=== PATIENT | male | born 1980 | race American Indian/Alaskan Native ===

== ENCOUNTER 2017-04-26 22:52 | Emergency (ER) | payer SELFPAY ==
[2017-04-27 01:16] LABS: Basophils % (Auto) 0.5 % (0.0-1.8); Hematocrit 28.8 % (35.5-45.6); Hemoglobin 8.7 gm/dl (11.8-15.2); Mean Corpuscular HGB Conc 30 % (32-34); Mean Corpuscular Hemoglobin 19 pg (28-32); Mean Corpuscular Volume 62 fl (84-94); Platelet Count 384 K/mm3 (140-440); Red Blood Count 4.62 M/mm3 (3.65-5.03); Red Cell Distribution Width 21.5 % (13.2-15.2); White Blood Count 10.2 K/mm3 (4.5-11.0)
[2017-04-27 01:17] LABS: Alanine Aminotransferase 46 units/L (7-56); Albumin 3.9 g/dL (3.9-5); Alkaline Phosphatase 346 units/L (35-129); Anion Gap 19 mmol/L; BUN/Creatinine Ratio 8.88; Blood Urea Nitrogen 8 mg/dL (9-20); Calcium 8.4 mg/dL (8.4-10.2); Carbon Dioxide 21 mmol/L (22-30); Chloride 98.9 mmol/L (98-107); Glucose 116 mg/dL (75-100); Lipase 18 units/L (13-60); Sodium 136 mmol/L (137-145)
[2017-04-27 01:21] LABS: Bilirubin,Urine NEG (Negative); Blood,Urine NEG (Negative); Ketones,Urine 20 mg/dL (Negative); Leukocyte Esterase,Urine NEG (Negative); Mucus,Urine 3+ /HPF; Nitrite,Urine NEG (Negative); Urobilinogen,Urine < 2.0 mg/dL (<2.0)
--- NOTE | 2017-04-27 07:59 | Emergency Department Report ---
ED Abdominal Pain HPI - General Chief Complaint: Abdominal Pain Stated Complaint: BACK/HIP PAIN Time Seen by Provider: 04/27/17 07:54 Source: patient Mode of arrival: Ambulatory Limitations: No Limitations - History of Present Illness Initial Comments: The patient states that he came to the emergency department for evaluation of exertional dyspnea. He states he has a history of ulcerative colitis. He has no history of VTE. He has not had any recent travel. He has not been coughing. He denies any sort of chest or abdominal pain. He states his last transfusion was in January and that he does have intermittent rectal bleeding. He 's had no nausea vomiting or hematemesis. He denies any recent significant diarrhea. He is not complaining of exacerbation of his ulcerative colitis. He also denies being here for back or hip pain as the short seems indicated. Denies abdominal pain. -: hour(s) Radiation: none Migration to: no migration Quality: other (not applicable not applicable) Consistency: now resolved Improves With: nothing Worsens With: nothing Associated Symptoms: denies other symptoms - Related Data Previous Rx's Medication Instructions Recorded Last Taken Type Ferrous Gluconate [Fergon 325 MG 325 mg PO TID #20 tablet 04/27/17 Unknown Rx tab] Potassium Chloride [K-Dur] 10 meq PO QDAY #14 tablet 04/27/17 Unknown Rx Allergies Allergy/AdvReac Type Severity Reaction Status Date / Time No Known Allergies Allergy Verified 04/27/17 00:02 ED Review of Systems ROS: Stated complaint: BACK/HIP PAIN Other details as noted in HPI Constitutional: denies: chills, fever Eyes: denies: eye pain, eye discharge, vision change ENT: denies: ear pain, throat pain Respiratory: SOB with exertion (only on exertion not at rest). denies: cough, shortness of breath, wheezing Cardiovascular: denies: chest pain, palpitations Endocrine: no symptoms reported Gastrointestinal: as per HPI, abdominal pain. denies: nausea, vomiting, diarrhea, constipation, hematemesis, melena, hematochezia Genitourinary: denies: urgency, dysuria Musculoskeletal: denies: back pain, joint swelling, arthralgia Skin: denies: rash, lesions Neurological: denies: headache, weakness, paresthesias Psychiatric: denies: anxiety, depression Hematological/Lymphatic: denies: easy bleeding, easy bruising ED Past Medical Hx - Past Medical History Previous Medical History?: Yes Additional medical history: Colitis - Surgical History Past Surgical History?: No - Social History Smoking Status: Never Smoker Substance Use Type: None - Medications Home Medications: Home Medications Medication Instructions Recorded Confirmed Last Taken Type Ferrous Gluconate [Fergon 325 MG 325 mg PO TID #20 tablet 04/27/17 Unknown Rx tab] Potassium Chloride [K-Dur] 10 meq PO QDAY #14 tablet 04/27/17 Unknown Rx ED Physical Exam - General Limitations: No Limitations General appearance: alert, in no apparent distress - Head Head exam: Present: atraumatic, normocephalic - Eye Eye exam: Present: normal appearance, PERRL, EOMI. Absent: scleral icterus - ENT ENT exam: Present: mucous membranes moist - Neck Neck exam: Present: normal inspection - Respiratory Respiratory exam: Present: normal lung sounds bilaterally. Absent: respiratory distress - Cardiovascular Cardiovascular Exam: Present: regular rate, normal rhythm. Absent: systolic murmur, diastolic murmur, rubs, gallop - GI/Abdominal GI/Abdominal exam: Present: soft, tenderness (very minimal discomfort in the right upper quadrant. Negative Amato's.), normal bowel sounds. Absent: distended, guarding, rebound, rigid, organomegaly, mass, bruit, pulsatile mass, hernia - Rectal Rectal exam: Present: deferred - Extremities Exam Extremities exam: Present: normal inspection - Back Exam Back exam: Present: normal inspection. Absent: CVA tenderness (R), CVA tenderness (L) - Neurological Exam Neurological exam: Present: alert, oriented X3, CN II-XII intact. Absent: motor sensory deficit - Psychiatric Psychiatric exam: Present: normal affect, normal mood - Skin Skin exam: Present: warm, dry, intact, normal color. Absent: rash ED Course Vital Signs 04/26/17 04/27/17 04/27/17 22:55 02:59 08:00 Temperature 98.5 F 97.6 F Pulse Rate 95 H 91 H 53 L Respiratory 20 16 18 Rate Blood Pressure 116/83 Blood Pressure 110/74 114/72 [Right] O2 Sat by Pulse 99 100 100 Oximetry - Reevaluation(s) Reevaluation #1: Patient resting comfortably. He is no distress. His pulse oximetry is 100%. Is not complaining of dyspnea. We went over his discharge instructions. He does have a hypochromic microcytic anemia. Therefore he will be placed on supplemental iron and referred for follow-up on his anemia. 04/27/17 10:54 ED Medical Decision Making - Lab Data Result diagrams: 04/27/17 00:29 04/27/17 00:29 Laboratory Results - last 24 hr 04/27/17 04/27/17 04/27/17 00:29 00:29 00:30 WBC 10.2 RBC 4.62 Hgb 8.7 L Hct 28.8 L MCV 62 L MCH 19 L MCHC 30 L RDW 21.5 H Plt Count 384 Lymph % (Auto) 27.6 [place] % (Auto) 12.7 H Eos % (Auto) 10.0 H Baso % (Auto) 0.5 Lymph # 2.8 [place] # 1.3 H Eos # 1.0 H Baso # 0.0 Seg Neutrophils % 49.2 Seg Neutrophils # 5.0 Sodium 136 L Potassium 3.0 L Chloride 98.9 Carbon Dioxide 21 L Anion Gap 19 BUN 8 L Creatinine 0.9 Estimated GFR > 60 BUN/Creatinine Ratio 8.88 Glucose 116 H Calcium 8.4 Total Bilirubin 0.60 AST 34 ALT 46 Alkaline Phosphatase 346 H Total Protein 8.0 Albumin 3.9 Albumin/Globulin Ratio 1.0 Lipase 18 Urine Color Yellow Urine Turbidity Clear Urine pH 5.0 Ur Specific [place] 1.030 Urine Protein 30 mg/dl Urine Glucose (UA) Neg Urine Ketones 20 Urine Blood Neg Urine Nitrite Neg Urine Bilirubin Neg Urine Urobilinogen < 2.0 Ur Leukocyte Esterase Neg Urine WBC (Auto) 1.0 Urine RBC (Auto) 3.0 Urine Mucus 3+ Laboratory Results - last 24 hr 04/27/17 04/27/17 04/27/17 00:29 00:29 00:30 WBC 10.2 RBC 4.62 Hgb 8.7 L Hct 28.8 L MCV 62 L MCH 19 L MCHC 30 L RDW 21.5 H Plt Count 384 Lymph % (Auto) 27.6 [place] % (Auto) 12.7 H Eos % (Auto) 10.0 H Baso % (Auto) 0.5 Lymph # 2.8 [place] # 1.3 H Eos # 1.0 H Baso # 0.0 Seg Neutrophils % 49.2 Seg Neutrophils # 5.0 PT INR APTT D-Dimer Sodium 136 L Potassium 3.0 L Chloride 98.9 Carbon Dioxide 21 L Anion Gap 19 BUN 8 L Creatinine 0.9 Estimated GFR > 60 BUN/Creatinine Ratio 8.88 Glucose 116 H Calcium 8.4 Magnesium Total Bilirubin 0.60 AST 34 ALT 46 Alkaline Phosphatase 346 H Total Creatine Kinase CK-MB (CK-2) CK-MB (CK-2) Rel Index Troponin T NT-Pro-B Natriuret Pep Total Protein 8.0 Albumin 3.9 Albumin/Globulin Ratio 1.0 Lipase 18 Urine Color Yellow Urine Turbidity Clear Urine pH 5.0 Ur Specific [place] 1.030 Urine Protein 30 mg/dl Urine Glucose (UA) Neg Urine Ketones 20 Urine Blood Neg Urine Nitrite Neg Urine Bilirubin Neg Urine Urobilinogen < 2.0 Ur Leukocyte Esterase Neg Urine WBC (Auto) 1.0 Urine RBC (Auto) 3.0 Urine Mucus 3+ Blood Type Antibody Screen BRAEDEN Antibody Screen 04/27/17 04/27/17 04/27/17 08:29 08:29 08:29 WBC RBC Hgb Hct MCV MCH MCHC RDW Plt Count Lymph % (Auto) [place] % (Auto) Eos % (Auto) Baso % (Auto) Lymph # [place] # Eos # Baso # Seg Neutrophils % Seg Neutrophils # PT 13.1 INR 0.95 APTT 33.1 D-Dimer 266.23 H Sodium Potassium Chloride Carbon Dioxide Anion Gap BUN Creatinine Estimated GFR BUN/Creatinine Ratio Glucose Calcium Magnesium 1.90 Total Bilirubin AST ALT Alkaline Phosphatase Total Creatine Kinase CK-MB (CK-2) CK-MB (CK-2) Rel Index Troponin T NT-Pro-B Natriuret Pep Total Protein Albumin Albumin/Globulin Ratio Lipase Urine Color Urine Turbidity Urine pH Ur Specific [place] Urine Protein Urine Glucose (UA) Urine Ketones Urine Blood Urine Nitrite Urine Bilirubin Urine Urobilinogen Ur Leukocyte Esterase Urine WBC (Auto) Urine RBC (Auto) Urine Mucus Blood Type O POSITIVE Antibody Screen TNR BRAEDEN Antibody Screen Negative 04/27/17 04/27/17 08:29 08:29 WBC RBC Hgb Hct MCV MCH MCHC RDW Plt Count Lymph % (Auto) [place] % (Auto) Eos % (Auto) Baso % (Auto) Lymph # [place] # Eos # Baso # Seg Neutrophils % Seg Neutrophils # PT INR APTT D-Dimer Sodium Potassium Chloride Carbon Dioxide Anion Gap BUN Creatinine Estimated GFR BUN/Creatinine Ratio Glucose Calcium Magnesium Total Bilirubin AST ALT Alkaline Phosphatase Total Creatine Kinase 246 H CK-MB (CK-2) 1.2 CK-MB (CK-2) Rel Index 0.4 Troponin T < 0.010 NT-Pro-B Natriuret Pep 23.84 Total Protein Albumin Albumin/Globulin Ratio Lipase Urine Color Urine Turbidity Urine pH Ur Specific [place] Urine Protein Urine Glucose (UA) Urine Ketones Urine Blood Urine Nitrite Urine Bilirubin Urine Urobilinogen Ur Leukocyte Esterase Urine WBC (Auto) Urine RBC (Auto) Urine Mucus Blood Type Antibody Screen BRAEDEN Antibody Screen - EKG Data -: EKG Interpreted by Me EKG shows normal: sinus rhythm, axis, intervals, QRS complexes, ST-T waves - Radiology Data interpreted by me: Chest x-ray no acute process. Normal cardiac silhouette. Critical care attestation.: If time is entered above; I have spent that time in minutes in the direct care of this critically ill patient, excluding procedure time. ED Disposition Clinical Impression: Hypokalemia Ulcerative colitis Qualifiers: Ulcerative colitis location: unspecified ulcerative colitis location Digestive disease complication type: unspecified complication Qualified Code(s): K51.919 - Ulcerative colitis, unspecified with unspecified complications Anemia Qualifiers: Anemia type: iron deficiency Iron deficiency anemia type: chronic blood loss Qualified Code(s): D50.0 - Iron deficiency anemia secondary to blood loss ( chronic) Disposition: - TO HOME OR SELFCARE Is pt being admited?: No Does the pt Need Aspirin: No Condition: Stable Instructions: Hypokalemia (ED), Iron Rich Diet (ED), Iron Deficiency Anemia (ED ), Anemia (ED) Additional Instructions: Your blood count was somewhat low (hemoglobin 8.7). He'll be placed on supplemental iron. Your potassium was somewhat low (3.0) be placed on supplemental potassium. Follow-up on both these things is essential. Return any significant shortness of breath or any acute change or symptoms. See referral possibilities. Prescriptions: Ferrous Gluconate [Fergon 325 MG tab] 325 mg PO TID #20 tablet Potassium Chloride [K-Dur] 10 meq PO QDAY #14 tablet Referrals: KRISSY QUINTERO MD [Primary Care Provider] - 3-5 Days VIJAY GILMORE MD [Staff Physician] - 3-5 Days [facility] [Provider Group] - 3-5 Days [facility] [Provider Group] - 3-5 Days Time of Disposition: 10:58
[2017-04-27] MEDS ORDERED: NACL 0.9% 1000 ML 1,000 ML IV ONE (08:13)
--- NOTE | 2017-04-27 08:39 | XRay Report ---
ROUTINE CHEST, TWO VIEWS: HISTORY: Difficulty in breathing. The trachea, heart, mediastinal contour, lung dye and bony thorax are unremarkable. IMPRESSION: Unremarkable chest x-ray.
[2017-04-27 08:55] LABS: INR 0.95 (0.87-1.13)
[2017-04-27 08:56] LABS: Partial Thromboplastin Time 33.1 Sec. (24.2-36.6)
[2017-04-27 09:05] LABS: Creatine Kinase MB 1.2 ng/mL (0.0-4.0)
[2017-04-27] MEDS ORDERED: K-DUR PO ONE (10:08)
[2017-04-27 11:21] VITALS: BP 110/66
== END 2017-04-27 11:21 | disposition home or self-care (01) ==
LOC: ED 22:52
DX: E87.6 Hypokalemia (principal); K51.919 Ulcerative colitis, unspecified with unspecified complications; D50.0 Iron deficiency anemia secondary to blood loss (chronic)
CPT/HCPCS: 36415; 71020; 80053; 81001; 82550; 82553; 83690; 83735; 83880; 84484; 85025; 85379; 85610; 85730; 86850; 86900; 86901; 93005; 93010; 96360; 99284; J7030

== ENCOUNTER 2018-03-13 20:36 | Inpatient (IN) | payer SELFPAY ==
[2018-03-13 21:32] LABS: Hematocrit TNR % (35.5-45.6); Hemoglobin TNR gm/dl (11.8-15.2); Lymphocytes % (Auto) TNR % (13.4-35.0); Mean Corpuscular HGB Conc TNR % (32-34); Mean Corpuscular Hemoglobin TNR pg (28-32); Mean Corpuscular Volume TNR fl (84-94); Mean Platelet Volume TNR fl (6-12); Platelet Count TNR K/mm3 (140-440); Red Blood Count TNR M/mm3 (3.65-5.03); Red Cell Distribution Width TNR % (13.2-15.2)
[2018-03-13 21:33] LABS: Basophils % (Auto) TNR % (0.0-1.8); Eosinophils % (Auto) TNR % (0.0-4.3); Monocytes % (Auto) TNR % (0.0-7.3)
[2018-03-13 21:34] LABS: Basophils # (Auto) TNR K/mm3 (0.0-0.1); Eosinophils # (Auto) TNR K/mm3 (0.0-0.4); Lymphocytes # (Auto) TNR K/mm3 (1.2-5.4); Monocytes # (Auto) TNR K/mm3 (0.0-0.8)
[2018-03-13] MEDS ORDERED: NACL 0.9% 1000 ML 1,000 ML IV ONE ×2 (21:40→21:49)
[2018-03-13 21:46] LABS: Alanine Aminotransferase 11 units/L (7-56); Albumin 2.4 g/dL (3.9-5); BUN/Creatinine Ratio 11; Blood Urea Nitrogen 9 mg/dL (9-20); Calcium 7.3 mg/dL (8.4-10.2); Hemolysis Index 1
--- NOTE | 2018-03-13 21:51 | Emergency Department Report ---
ED GI Bleed HPI - General Chief complaint: Abdominal Pain Stated complaint: KYLE Time Seen by Provider: 03/13/18 21:32 Source: patient, EMS Mode of arrival: Stretcher Limitations: No Limitations - History of Present Illness Initial comments: States long history of ulcerative colitis lost to follow-up, stopped his medicine, lives in [facility] but was admitted to the [facility] last time "3 months ago" says he never followed up but did see a GI doctor at that time, is here having GI bleed acute exacerbation of u.c., dizzy w/ standing, hb of 8.7 last visit here a yr ago, home meds supposed to be mescaline, prednison, iron, k , admitted at [facility] on 08/12/17, severe anemia, uc, hypovolemia, rf, here eval brb per rectum x a wk complaint: gross hematochezia -: Gradual, days(s) Location: diffuse Radiation: none Consistency: intermittent Context: history of GI bleed Associated Symptoms: abdominal pain, nausea, malaise, weakness - Related Data Previous Rx's Medication Instructions Recorded Last Taken Type Ferrous Gluconate [Fergon 325 MG 325 mg PO TID #20 tablet 04/27/17 Unknown Rx tab] Potassium Chloride [K-Dur] 10 meq PO QDAY #14 tablet 04/27/17 Unknown Rx Allergies Allergy/AdvReac Type Severity Reaction Status Date / Time No Known Allergies Allergy Verified 04/27/17 00:02 ED Review of Systems ROS: Stated complaint: KYLE Other details as noted in HPI Comment: All other systems reviewed and negative Constitutional: malaise, weakness Respiratory: denies: shortness of breath, SOB at rest, stridor Cardiovascular: denies: chest pain, palpitations, edema, syncope Gastrointestinal: denies: diarrhea, constipation, hematemesis, hematochezia Genitourinary: denies: frequency, hematuria, discharge Skin: denies: change in color, change in hair/nails, pruritus Neurological: denies: numbness, paresthesias Psychiatric: denies: auditory hallucinations, visual hallucinations ED Past Medical Hx - Past Medical History Previous Medical History?: Yes Hx Arthritis: Yes (Back and right hip) Additional medical history: Colitis - Social History Smoking Status: Never Smoker Substance Use Type: None - Medications Home Medications: Home Medications Medication Instructions Recorded Confirmed Last Taken Type Ferrous Gluconate [Fergon 325 MG 325 mg PO TID #20 tablet 04/27/17 Unknown Rx tab] Potassium Chloride [K-Dur] 10 meq PO QDAY #14 tablet 04/27/17 Unknown Rx ED Physical Exam - General Limitations: No Limitations General appearance: alert, anxious, other (chronically ill-appearing malnourished/ w pale conjunctiva) - Head Head exam: Present: atraumatic, normocephalic - Eye Eye exam: Present: PERRL, EOMI - ENT ENT exam: Present: normal exam, normal orophraynx - Neck Neck exam: Present: normal inspection. Absent: tenderness, meningismus - Respiratory Respiratory exam: Present: normal lung sounds bilaterally. Absent: respiratory distress, wheezes, rales, rhonchi, stridor, prolonged expiratory - Cardiovascular Cardiovascular Exam: Present: regular rate, normal rhythm - GI/Abdominal GI/Abdominal exam: Present: soft, tenderness. Absent: guarding, rebound, organomegaly, mass, pulsatile mass - Rectal Rectal exam: Present: bloody stool - Extremities Exam Extremities exam: Present: other (delayed cap refill). Absent: tenderness, pedal edema, joint swelling, calf tenderness - Back Exam Back exam: Absent: CVA tenderness (L), muscle spasm, paraspinal tenderness, vertebral tenderness - Neurological Exam Neurological exam: Present: alert, oriented X3, CN II-XII intact. Absent: motor sensory deficit - Psychiatric Psychiatric exam: Present: anxious ED Course Vital Signs 03/13/18 03/13/18 20:53 22:14 Temperature 98.7 F Pulse Rate 96 H Respiratory 16 16 Rate Blood Pressure 102/66 O2 Sat by Pulse 100 99 Oximetry ED Medical Decision Making - Lab Data Result diagrams: 03/13/18 22:56 03/13/18 21:02 - EKG Data -: EKG Interpreted by De EKG shows normal: sinus rhythm Rate: normal - EKG Data Interpretation: no acute changes - Medical Decision Making Patient with heart rate anywhere from 102-88, systolic blood pressure 102, up to 97; blood transfusion is ordered H&H returns low patient will need admitted for further evaluation of also of colitis and rectal bleeding symptomatic severe anemia, he does deny chest pain no focal neuro complaints is having malaise and shortness of breath, case d/w dr rosado of gi and hospilatist adn will admit tele for gi b, u.c., severe symptomatic anemia, will need blood transfusion Critical Care Time: Yes Critical care time in (mins) excluding proc time.: 45 Critical care attestation.: If time is entered above; I have spent that time in minutes in the direct care of this critically ill patient, excluding procedure time. ED Disposition Clinical Impression: Severe anemia, Rectal bleeding, Ulcerative colitis Disposition: OP ADMIT IP TO THIS HOSP Is pt being admited?: Yes Condition: Serious Referrals: PRIMARY CARE, [Primary Care Provider] - 3-5 Days Time of Disposition: 00:32
[2018-03-13 23:06] LABS: INR 1.11 (0.87-1.13)
[2018-03-13 23:07] LABS: Partial Thromboplastin Time 32.8 Sec. (24.2-36.6)
[2018-03-14 00:01] LABS: Basophils % (Auto) 0.5 % (0.0-1.8); Eosinophils # (Auto) 0.4 K/mm3 (0.0-0.4); Eosinophils % (Auto) 4.5 % (0.0-4.3); Lymphocytes # (Auto) 2.5 K/mm3 (1.2-5.4); Lymphocytes % (Auto) 25.6 % (13.4-35.0); Mean Corpuscular HGB Conc 29 % (32-34); Monocytes # (Auto) 1.1 K/mm3 (0.0-0.8); Red Blood Count 1.99 M/mm3 (3.65-5.03)
[2018-03-14 00:14] LABS: Mean Corpuscular Hemoglobin 17 pg (28-32)
[2018-03-14 00:18] LABS: Hematocrit 11.8 % (35.5-45.6); Hemoglobin 3.4 gm/dl (11.8-15.2)
[2018-03-14 00:20] LABS: Mean Corpuscular Volume 59 fl (84-94); Red Cell Distribution Width 20.3 % (13.2-15.2)
[2018-03-14 00:21] LABS: Platelet Count 84 K/mm3 (140-440)
[2018-03-14] MEDS ORDERED: NACL 0.9% 500 ML 500 ML IV ONE ×2 (00:23→01:28)
[2018-03-14] MEDS ORDERED: SODIUM CHLORIDE FLUSH SYRINGE 10 ML IV PRN (01:28)
[2018-03-14] MEDS ORDERED: BENADRYL IV PRN (01:28)
[2018-03-14] MEDS ORDERED: ZOFRAN IV PRN (01:28)
[2018-03-14] MEDS ORDERED: TYLENOL PO PRN (01:28)
--- NOTE | 2018-03-14 01:32 | Cat Scan Report ---
FINAL REPORT EXAM: CT ABDOMEN PELVIS WO CON HISTORY: ulcertive colitis TECHNIQUE: Routine axial imaging was obtained of the abdomen and pelvis without oral or IV contrast. Sagittal and coronal reconstructions were reviewed. FINDINGS: The lung bases are clear. Pleural fluid is not seen. The liver, gallbladder, pancreas, spleen, and adrenal glands appear normal. The kidneys show no evidence of stones or hydronephrosis. There is generalized circumferential mucosal thickening throughout the colon without significant dilatation of the colon. The findings are compatible with generalized colitis. Free air is not seen. There is no evidence of abscess. The small bowel loops are normal in caliber. There is no evidence of free fluid or adenopathy. The appendix is not seen. In the pelvis the prostate gland and bladder appear normal. The skeletal structures appear well maintained IMPRESSION: Generalized colitis. No evidence of abscess or free air. Appendix not identified.
--- NOTE | 2018-03-14 01:32 | History and Physical Report ---
History of Present Illness Date of examination: 03/14/18 History of present illness: 37-year-old man with a history of ulcerative colitis with the emergency room with complaints of rectal bleed, 6 episodes a day, started yesterday. Denies any duct abdominal pain. He has not been on any medications for ulcerative colitis for a wall, he does not recall what he used to take. He had a colonoscopy in 2017 at [facility] which shows diffuse colonic erythema, friability, ulceration throughout the entire colon Review of systems Constitutional: no weight loss, chills Ears, eyes, nose, mouth and throat: no nasal congestion, no nasal discharge, no sinus pressure, no vision change, no red eye. Neck: No neck pain or rigidity. Cardiovascular: no chest pain, palpitations Respiratory: No shortness of breath, cough Gastrointestinal: no abdominal pain Genitourinary : no frequency , no hematuria Musculoskeletal: no joint swelling or muscle ache Integumentary: no rash, no pruritis Neurological: no parathesias, no numbness, no focal weakness Endocrine: no cold or heat intolerance, no polyuria or polydipsia Hematologic/Lymphatic: no easy bruising, no easy bleeding, no gland swelling Allergic/Immunologic: no urticaria, no angioedema. PAST MEDICAL HISTORY:ulcerative colitis PAST SURGICAL HISTORY: None SOCIAL HISTORY: Denies alcohol, tobacco, drugs FAMILY HISTORY: Hypertension Medications and Allergies Allergies Allergy/AdvReac Type Severity Reaction Status Date / Time No Known Allergies Allergy Verified 04/27/17 00:02 Home Medications Medication Instructions Recorded Confirmed Last Taken Type No Known Home Medications [No 03/14/18 03/14/18 Unknown History Reported Home Medications] Active Meds: Active Medications Acetaminophen (Tylenol) 650 mg PO Q4H PRN PRN Reason: Pain MILD(1-3)/Fever >100.5/COON Diphenhydramine HCl (Benadryl) 25 mg IV Q6H PRN PRN Reason: Itching Ondansetron HCl (Zofran) 4 mg IV Q4H PRN PRN Reason: Nausea And Vomiting Sodium Chloride (Sodium Chloride Flush Syringe 10 Ml) 10 ml IV BID MALICK Sodium Chloride (Sodium Chloride Flush Syringe 10 Ml) 10 ml IV PRN PRN PRN Reason: LINE FLUSH Exam - Physical Exam Narrative exam: Gen. appearance: Patient lying in bed, no apparent distress HEENT: Normocephalic, atraumatic, pupils equally round and reactive to light, extraocular movement intact, and no sclericterus,. No JVD or thyromegaly or nodule,neck supple, no carotid bruit ,mucous membranes moist, no exudate or erythema Heart: S1, S2, regular rate and rhythm Lungs: Clear to auscultation bilaterally, breathing comfortable Abdomen: Positive bowel sounds, nontender, nondistended, no organomegaly Extremity: No edema, no cyanosis, clubbing Skin: No rash, nodules, warm, dry Neuro: Oriented 3, cranial nerves II-12 intact, speech is fluent, motor and sensory intact - Constitutional Vitals: Temp Pulse Resp BP Pulse Ox 98.7 F 96 H 16 102/66 99 03/13/18 20:53 03/13/18 20:53 03/13/18 22:14 03/13/18 20:53 03/13/18 22:14 Results - Labs CBC & Chem 7: 03/13/18 22:56 03/13/18 21:02 Labs: Abnormal lab results 03/13/18 03/13/18 03/13/18 Range/Units 21:02 22:15 22:56 RBC 1.99 L (3.65-5.03) M/mm3 Hgb 3.4 L* (11.8-15.2) gm/dl Hct 11.8 L* (35.5-45.6) % MCV 59 L (84-94) fl MCH 17 L (28-32) pg MCHC 29 L (32-34) % RDW 20.3 H (13.2-15.2) % Plt Count 84 L (140-440) K/mm3 [place] % (Auto) 11.0 H (0.0-7.3) % Eos % (Auto) 4.5 H (0.0-4.3) % [place] # 1.1 H (0.0-0.8) K/mm3 Sodium 136 L (137-145) mmol/L Potassium 3.3 L (3.6-5.0) mmol/L Glucose 107 H (75-100) mg/dL Calcium 7.3 L (8.4-10.2) mg/dL Total Protein 5.7 L (6.3-8.2) g/dL Albumin 2.4 L (3.9-5) g/dL Crossmatch See Detail - Imaging and Cardiology CT scan - abdomen: report reviewed CT scan - pelvis: report reviewed Assessment and Plan Assessment Ulcerative colitis exacerbation Severe anemia Plan Admit to medicine Changes blood cells, premedicated before transfusion Consult GI DVT prophylaxis
[2018-03-14] MEDS ORDERED: NACL 0.9% 500 ML 500 ML ONE (02:26)
--- NOTE | 2018-03-14 09:38 | Gastroenterology Consultation ---
<NAOMI OVIEDO - Last Filed: 03/14/18 10:22> History of Present Illness - Reason for Consult Consult date: 03/14/18 GIB Requesting physician: LEIF MILLER - History of Present Illness Patient is a 37 y/o male with PMH of ulcerative colitis who presented to ED with c/o rectal bleeding and dizziness. He was found to be severely anemic on admission with H/H 3.4/11.8. He was diagnosed with UC in 2010 by endoscopy but has been non-compliant with follow up and medications due to lack of insurance. He has been on and off mesalamine in the past, along with prednisone for flares , but has been off any medication for the past few months. This morning he was sitting on the side of the bed w/o acute distress. Reports BMs x 3-4 per day with watery bloody stool. Admits to some recent wt loss but denies fever, CP, SOB, abd pain, N/V, hematemesis, melena, or constipation. Last colonoscopy was in 2017 at [place] while hospitalized for similar symptoms that showed diffuse colonic erythema, friability, and ulcerations throughout the entire colon. Past History Past Medical History: other (ulcerative colitis) Past Surgical History: No surgical history Social history: denies: smoking, alcohol abuse Family history: hypertension Medications and Allergies Allergies Allergy/AdvReac Type Severity Reaction Status Date / Time No Known Allergies Allergy Verified 04/27/17 00:02 Home Medications Medication Instructions Recorded Confirmed Last Taken Type No Known Home Medications [No 03/14/18 03/14/18 Unknown History Reported Home Medications] Active Meds: Active Medications Acetaminophen (Tylenol) 650 mg PO Q4H PRN PRN Reason: Pain MILD(1-3)/Fever >100.5/COON Diphenhydramine HCl (Benadryl) 25 mg IV Q6H PRN PRN Reason: Itching Ondansetron HCl (Zofran) 4 mg IV Q4H PRN PRN Reason: Nausea And Vomiting Sodium Chloride (Sodium Chloride Flush Syringe 10 Ml) 10 ml IV BID MALICK Sodium Chloride (Sodium Chloride Flush Syringe 10 Ml) 10 ml IV PRN PRN PRN Reason: LINE FLUSH Review of Systems - Review of Systems All systems: negative Gastrointestinal: diarrhea, hematochezia Exam - Constitutional Vital Signs: Temp Pulse Resp BP Pulse Ox 98.3 F 76 18 100/58 99 03/14/18 03:33 03/14/18 06:36 03/14/18 03:33 03/14/18 06:36 03/14/18 06:36 General appearance: no acute distress - Respiratory Respiratory: bilateral: CTA - Cardiovascular Rhythm: regular Heart Sounds: Present: S1 & S2 - Gastrointestinal General gastrointestinal: Present: soft, non-tender, non-distended, normal bowel sounds - Integumentary Integumentary: Present: warm, dry - Neurologic Neurological: alert and oriented x3 - Labs CBC & Chem 7: 03/13/18 22:56 03/13/18 21:02 Lab Results: Laboratory Results - last 24 hr 03/13/18 03/13/18 03/13/18 21:02 21:02 22:06 WBC TNR RBC TNR Hgb TNR Hct TNR MCV TNR MCH TNR MCHC TNR RDW TNR Plt Count TNR Lymph % (Auto) TNR [place] % (Auto) TNR Eos % (Auto) TNR Baso % (Auto) TNR Lymph # TNR [place] # TNR Eos # TNR Baso # TNR Add Manual Diff TNR Seg Neutrophils % TNR Seg Neutrophils # TNR PT 14.9 INR 1.11 APTT 32.8 Sodium 136 L Potassium 3.3 L Chloride 103.8 Carbon Dioxide 22 Anion Gap 14 BUN 9 Creatinine 0.8 Estimated GFR > 60 BUN/Creatinine Ratio 11 Glucose 107 H Calcium 7.3 L Total Bilirubin 0.30 AST 16 ALT 11 Alkaline Phosphatase 105 Total Protein 5.7 L Albumin 2.4 L Albumin/Globulin Ratio 0.7 Blood Type Antibody Screen Crossmatch 03/13/18 03/13/18 22:15 22:56 WBC 9.8 RBC 1.99 L Hgb 3.4 L* Hct 11.8 L* MCV 59 L MCH 17 L MCHC 29 L RDW 20.3 H Plt Count 84 L Lymph % (Auto) 25.6 [place] % (Auto) 11.0 H Eos % (Auto) 4.5 H Baso % (Auto) 0.5 Lymph # 2.5 [place] # 1.1 H Eos # 0.4 Baso # 0.0 Add Manual Diff Seg Neutrophils % 58.4 Seg Neutrophils # 5.7 PT INR APTT Sodium Potassium Chloride Carbon Dioxide Anion Gap BUN Creatinine Estimated GFR BUN/Creatinine Ratio Glucose Calcium Total Bilirubin AST ALT Alkaline Phosphatase Total Protein Albumin Albumin/Globulin Ratio Blood Type O POSITIVE Antibody Screen Negative Crossmatch See Detail Assessment and Plan 1.ulcerative colitis flare 2.severe anemia -afebrile -WBC 9.8 -HGB 3.4 on admission- 3rd unit of PRBCs transfusing -continue to monitor H/H and transfuse as needed -HD stable -last colonoscopy 2017 at [place] [facility] showed diffuse colonic erythema, friability, and ulcerations throughout the entire colon -stool studies to r/o infection -start on empiric antibiotics and steroids -clear liquid diet -CRP in am -continue to trend labs and supportive care -will follow <PEDRO OLIVER - Last Filed: 03/14/18 15:35> Medications and Allergies Active Meds: Active Medications Acetaminophen (Tylenol) 650 mg PO Q4H PRN PRN Reason: Pain MILD(1-3)/Fever >100.5/COON Diphenhydramine HCl (Benadryl) 25 mg IV Q6H PRN PRN Reason: Itching Levofloxacin/Dextrose (Levaquin 500mg/100ml) 500 mg in 100 mls @ 100 mls/hr IV Q24HR [facility]; Protocol Last Admin: 03/14/18 11:16 Dose: 100 mls/hr Metronidazole (Flagyl 500 Mg/100 Ml) 500 mg in 100 mls @ 100 mls/hr IV Q8HR MALICK Last Admin: 03/14/18 14:06 Dose: 100 mls/hr Ondansetron HCl (Zofran) 4 mg IV Q4H PRN PRN Reason: Nausea And Vomiting Prednisone (Deltasone) 60 mg PO QDAY [facility] Last Admin: 03/14/18 11:16 Dose: 60 mg Sodium Chloride (Sodium Chloride Flush Syringe 10 Ml) 10 ml IV BID [facility] Last Admin: 03/14/18 11:17 Dose: 10 ml Sodium Chloride (Sodium Chloride Flush Syringe 10 Ml) 10 ml IV PRN PRN PRN Reason: LINE FLUSH Exam - Constitutional Vital Signs: Temp Pulse Resp BP Pulse Ox 98.3 F 76 18 100/58 100 03/14/18 03:33 03/14/18 06:36 03/14/18 03:33 03/14/18 06:36 03/14/18 10:00 - Labs CBC & Chem 7: 03/13/18 22:56 03/13/18 21:02 Lab Results: Laboratory Results - last 24 hr 03/13/18 03/13/18 03/13/18 21:02 21:02 22:06 WBC TNR RBC TNR Hgb TNR Hct TNR MCV TNR MCH TNR MCHC TNR RDW TNR Plt Count TNR Lymph % (Auto) TNR [place] % (Auto) TNR Eos % (Auto) TNR Baso % (Auto) TNR Lymph # TNR [place] # TNR Eos # TNR Baso # TNR Add Manual Diff TNR Seg Neutrophils % TNR Seg Neutrophils # TNR PT 14.9 INR 1.11 APTT 32.8 Sodium 136 L Potassium 3.3 L Chloride 103.8 Carbon Dioxide 22 Anion Gap 14 BUN 9 Creatinine 0.8 Estimated GFR > 60 BUN/Creatinine Ratio 11 Glucose 107 H Calcium 7.3 L Total Bilirubin 0.30 AST 16 ALT 11 Alkaline Phosphatase 105 Total Protein 5.7 L Albumin 2.4 L Albumin/Globulin Ratio 0.7 C. difficile Toxin A&B Blood Type Antibody Screen Crossmatch 03/13/18 03/13/18 03/14/18 22:15 22:56 10:01 WBC 9.8 RBC 1.99 L Hgb 3.4 L* Hct 11.8 L* MCV 59 L MCH 17 L MCHC 29 L RDW 20.3 H Plt Count 84 L Lymph % (Auto) 25.6 [place] % (Auto) 11.0 H Eos % (Auto) 4.5 H Baso % (Auto) 0.5 Lymph # 2.5 [place] # 1.1 H Eos # 0.4 Baso # 0.0 Add Manual Diff Seg Neutrophils % 58.4 Seg Neutrophils # 5.7 PT INR APTT Sodium Potassium Chloride Carbon Dioxide Anion Gap BUN Creatinine Estimated GFR BUN/Creatinine Ratio Glucose Calcium Total Bilirubin AST ALT Alkaline Phosphatase Total Protein Albumin Albumin/Globulin Ratio C. difficile Toxin A&B Negative Blood Type O POSITIVE Antibody Screen Negative Crossmatch See Detail Assessment and Plan Pt seen and examined. Agree with note above. Patient with h/o UC, non compliant with medications (did not have health insurance). presents with profound anemia, minor scant bleeding, chronic diarrhea. r/o c diff. empiric abx and steroids. reports having colonoscopy 3 months ago at [place]. will follow-up
[2018-03-14] MEDS ORDERED: LEVAQUIN 500MG/100ML 500 MG/100 ML BAG IV SCH (11:00)
[2018-03-14] MEDS: DELTASONE PO SCH (11:16)
[2018-03-14] MEDS: SODIUM CHLORIDE FLUSH SYRINGE 10 ML IV SCH ×2 (11:17→22:45)
[2018-03-14] MEDS: FLAGYL 500 MG/100 ML 500 MG/100 ML BAG IV SCH ×2 (14:06→22:45)
[2018-03-14 15:52] LABS: Bilirubin,Urine NEG (Negative); Blood,Urine NEG (Negative); Color,Urine Yellow (Yellow); Mucus,Urine FEW /HPF; Protein,Urine <15 mg/dL mg/dL (Negative); Urobilinogen,Urine < 2.0 mg/dL (<2.0)
--- NOTE | 2018-03-14 18:12 | Event Note ---
Date: 03/14/18 Patient reassesed Assessment and Plan 1.ulcerative colitis flare 2.severe anemia -afebrile -WBC 9.8 -HGB 3.4 on admission- 3rd unit of PRBCs transfusing -continue to monitor H/H and transfuse as needed -HD stable -last colonoscopy 2016 at [place] showed diffuse colonic erythema, friability, and ulcerations throughout the entire colon -stool studies to r/o infection -start on empiric antibiotics and steroids -clear liquid diet -CRP in am -continue to trend labs and supportive care -will follow
[2018-03-14] MEDS ORDERED: NACL 0.9% 500 ML 500 ML IV NR (18:19)
[2018-03-14 20:04] LABS: Hematocrit 30.5 % (35.5-45.6); Hematocrit 31.1 % (35.5-45.6); Hemoglobin 9.5 gm/dl (11.8-15.2); Hemoglobin 9.6 gm/dl (11.8-15.2); Mean Corpuscular HGB Conc 31 % (32-34); Mean Corpuscular Hemoglobin 23 pg (28-32); Mean Corpuscular Volume 74 fl (84-94); Red Cell Distribution Width 29.3 % (13.2-15.2)
[2018-03-14 20:05] LABS: Platelet Count 81 K/mm3 (140-440)
[2018-03-14 20:32] LABS: Total Cells Counted 100
[2018-03-14 20:33] LABS: Basophils % (Manual) 0 % (0.0-1.8); Eosinophils % (Manual) 0 % (0.0-4.3)
[2018-03-14 20:37] LABS: Large Platelets 1+
[2018-03-14 20:38] LABS: Dimorphic RBC Yes; Hypochromasia 2+; Platelet Estimate Appears Decreased; Poikilocytosis 1+
[2018-03-14] MEDS: KCL 10MEQ/100ML 10 MEQ/100 ML BAG IV SCH (23:00)
[2018-03-15] MEDS: KCL 10MEQ/100ML 10 MEQ/100 ML BAG IV SCH ×3 (01:05→04:57)
[2018-03-15 06:40] LABS: Hematocrit 28.6 % (35.5-45.6); Hemoglobin 9.2 gm/dl (11.8-15.2); Mean Corpuscular HGB Conc 32 % (32-34); Mean Corpuscular Volume 73 fl (84-94); Red Blood Count 3.93 M/mm3 (3.65-5.03)
[2018-03-15 06:41] LABS: Mean Corpuscular Hemoglobin 23 pg (28-32); Platelet Count 81 K/mm3 (140-440)
[2018-03-15 06:48] LABS: BUN/Creatinine Ratio 8; Blood Urea Nitrogen 5 mg/dL (9-20); Calcium 7.8 mg/dL (8.4-10.2); Hemolysis Index 4
[2018-03-15] MEDS: FLAGYL 500 MG/100 ML 500 MG/100 ML BAG IV SCH (06:50)
[2018-03-15 08:41] LABS: Anisocytosis 2+; Basophils % (Manual) 0 % (0.0-1.8); Total Cells Counted 100
[2018-03-15 08:42] LABS: Hypochromasia 2+; Large Platelets Few
[2018-03-15 08:43] LABS: Platelet Estimate Cons
--- NOTE | 2018-03-15 11:31 | Gastroenterology Progress Note ---
Assessment and Plan 1.ulcerative colitis flare 2.severe anemia- most likely from chronic blood loss -afebrile -WBC -WNL -CRP-WNL -stool C-diff negative -HGB 9.2 s/p transfusion of 4 units PRBCs -continue to monitor H/H and transfuse as needed -no active signs of bleeding-HD stable -last colonoscopy 2016 at [place] showed diffuse colonic erythema, friability, and ulcerations throughout the entire colon -clinically pt reports feeling better with diarrhea improved (BM 2 overnight and this am) and no abd pain or N/V -tolerating clears -will start on GI soft diet- okay to advance as tolerated -transition antibiotics from IV to PO -continue PO steroids -continue supportive care -if pt tolerates advancing diet, okay to be d/c per GI standpoint on prednisone taper and continued empiric antibiotics x 7 days with follow up clinic appt in 2 weeks -discussed need for follow up with patient with understanding voiced- office information and card given to pt -will sign off, please call if needed Subjective Date of service: 03/15/18 Principal diagnosis: GIB Interval history: Patient resting in bed this am w/o acute distress. Reports feeling better with diarrhea improved. Denies abd pain, N/V, or signs of bleeding. Tolerating clears. Objective - Constitutional Vitals: Temp Pulse Resp BP Pulse Ox 98.0 F 58 L 18 102/65 100 03/15/18 07:43 03/15/18 04:32 03/15/18 07:43 03/15/18 07:43 03/15/18 10:41 General appearance: no acute distress - Respiratory Respiratory: bilateral: CTA - Cardiovascular Rhythm: regular Heart Sounds: Present: S1 & S2 - Gastrointestinal General gastrointestinal: Present: soft, non-tender, non-distended, normal bowel sounds - Neurologic Neurological: alert and oriented x3 - Labs CBC & Chem 7: 03/15/18 06:04 03/15/18 06:04 Labs: Laboratory Results - last 24 hr 03/13/18 03/13/18 03/14/18 15:30 22:15 10:01 WBC RBC Hgb Hct MCV MCH MCHC RDW Plt Count Add Manual Diff Total Counted Seg Neuts % (Manual) Band Neutrophils % Lymphocytes % (Manual) Reactive Lymphs % (Man) Monocytes % (Manual) Eosinophils % (Manual) Basophils % (Manual) Metamyelocytes % Myelocytes % Promyelocytes % Blast Cells % Nucleated RBC % Seg Neutrophils # Man Band Neutrophils # Lymphocytes # (Manual) Abs React Lymphs (Man) Monocytes # (Manual) Eosinophils # (Manual) Basophils # (Manual) Metamyelocytes # Myelocytes # Promyelocytes # Blast Cells # WBC Morphology Hypersegmented Neuts Hyposegmented Neuts Hypogranular Neuts Smudge Cells Toxic Granulation Toxic Vacuolation Dohle Bodies Pelger-Huet Anomaly Mark Rods Platelet Estimate Clumped Platelets Plt Clumps, EDTA Large Platelets Giant Platelets Platelet Satelliting Plt Morphology Comment RBC Morphology Dimorphic RBCs Polychromasia Hypochromasia Poikilocytosis Anisocytosis Microcytosis Macrocytosis Spherocytes Pappenheimer Bodies Sickle Cells Target Cells Tear Drop Cells Ovalocytes Helmet Cells Cheema-Montgomery Bodies Seeley Rings Osvaldo Cells Bite Cells Crenated Cell Elliptocytes Acanthocytes (Spur) Rouleaux Hemoglobin C Crystals Schistocytes Malaria parasites Sunny Bodies Hem Pathologist Commnt Sodium Potassium Chloride Carbon Dioxide Anion Gap BUN Creatinine Estimated GFR BUN/Creatinine Ratio Glucose Calcium C-Reactive Protein Urine Color Yellow Urine Turbidity Clear Urine pH 6.0 Ur Specific [place] 1.012 Urine Protein <15 mg/dl Urine Glucose (UA) Neg Urine Ketones Neg Urine Blood Neg Urine Nitrite Neg Urine Bilirubin Neg Urine Urobilinogen < 2.0 Ur Leukocyte Esterase Neg Urine WBC (Auto) 1.0 Urine RBC (Auto) 2.0 U Epithel Cells (Auto) < 1.0 Urine Mucus Few C. difficile Toxin A&B Negative Blood Type O POSITIVE Antibody Screen Negative Crossmatch See Detail 03/14/18 03/14/18 03/15/18 19:15 19:15 06:04 WBC 6.4 9.2 RBC 4.20 3.93 Hgb 9.5 L D 9.6 L 9.2 L Hct 30.5 L D 31.1 L 28.6 L MCV 74 L 73 L MCH 23 L 23 L MCHC 31 L 32 RDW 29.3 H 29.0 H Plt Count 81 L 81 L Add Manual Diff Complete Complete Total Counted 100 100 Seg Neuts % (Manual) 91.0 H 80.0 H Band Neutrophils % 0 0 Lymphocytes % (Manual) 8.0 L 12.0 L Reactive Lymphs % (Man) 0 0 Monocytes % (Manual) 1.0 6.0 Eosinophils % (Manual) 0 2.0 Basophils % (Manual) 0 0 Metamyelocytes % 0 0 Myelocytes % 0 0 Promyelocytes % 0 0 Blast Cells % 0 0 Nucleated RBC % Not Reportable Not Reportable Seg Neutrophils # Man 5.8 7.4 Band Neutrophils # 0.0 0.0 Lymphocytes # (Manual) 0.5 L 1.1 L Abs React Lymphs (Man) 0.0 0.0 Monocytes # (Manual) 0.1 0.6 Eosinophils # (Manual) 0.0 0.2 Basophils # (Manual) 0.0 0.0 Metamyelocytes # 0.0 0.0 Myelocytes # 0.0 0.0 Promyelocytes # 0.0 0.0 Blast Cells # 0.0 0.0 WBC Morphology Not Reportable Not Reportable Hypersegmented Neuts Not Reportable Not Reportable Hyposegmented Neuts Not Reportable Not Reportable Hypogranular Neuts Not Reportable Not Reportable Smudge Cells Not Reportable Not Reportable Toxic Granulation Not Reportable Not Reportable Toxic Vacuolation Not Reportable Not Reportable Dohle Bodies Not Reportable Not Reportable Pelger-Huet Anomaly Not Reportable Not Reportable Mark Rods Not Reportable Not Reportable Platelet Estimate Appears decreased Cons Clumped Platelets Not Reportable Not Reportable Plt Clumps, EDTA Not Reportable Not Reportable Large Platelets 1+ Few Giant Platelets Not Reportable Not Reportable Platelet Satelliting Not Reportable Not Reportable Plt Morphology Comment Not Reportable Not Reportable RBC Morphology Not Reportable Not Reportable Dimorphic RBCs Yes Not Reportable Polychromasia Not Reportable Not Reportable Hypochromasia 2+ 2+ Poikilocytosis 1+ Not Reportable Anisocytosis Not Reportable 2+ Microcytosis 1+ 1+ Macrocytosis Not Reportable Not Reportable Spherocytes Not Reportable Not Reportable Pappenheimer Bodies Not Reportable Not Reportable Sickle Cells Not Reportable Not Reportable Target Cells Not Reportable Not Reportable Tear Drop Cells Not Reportable Not Reportable Ovalocytes Not Reportable Not Reportable Helmet Cells Not Reportable Not Reportable Cheema-Montgomery Bodies Not Reportable Not Reportable Seeley Rings Not Reportable Not Reportable [place]wood Cells Not Reportable Not Reportable Bite Cells Not Reportable Not Reportable Crenated Cell Not Reportable Not Reportable Elliptocytes Not Reportable Not Reportable Acanthocytes (Spur) Not Reportable Not Reportable Rouleaux Not Reportable Not Reportable Hemoglobin C Crystals Not Reportable Not Reportable Schistocytes Not Reportable Not Reportable Malaria parasites Not Reportable Not Reportable Sunny Bodies Not Reportable Not Reportable Hem Pathologist Commnt No No Sodium Potassium Chloride Carbon Dioxide Anion Gap BUN Creatinine Estimated GFR BUN/Creatinine Ratio Glucose Calcium C-Reactive Protein Urine Color Urine Turbidity Urine pH Ur Specific [place] Urine Protein Urine Glucose (UA) Urine Ketones Urine Blood Urine Nitrite Urine Bilirubin Urine Urobilinogen Ur Leukocyte Esterase Urine WBC (Auto) Urine RBC (Auto) U Epithel Cells (Auto) Urine Mucus C. difficile Toxin A&B Blood Type Antibody Screen Crossmatch 03/15/18 03/15/18 06:04 06:04 WBC RBC Hgb Hct MCV MCH MCHC RDW Plt Count Add Manual Diff Total Counted Seg Neuts % (Manual) Band Neutrophils % Lymphocytes % (Manual) Reactive Lymphs % (Man) Monocytes % (Manual) Eosinophils % (Manual) Basophils % (Manual) Metamyelocytes % Myelocytes % Promyelocytes % Blast Cells % Nucleated RBC % Seg Neutrophils # Man Band Neutrophils # Lymphocytes # (Manual) Abs React Lymphs (Man) Monocytes # (Manual) Eosinophils # (Manual) Basophils # (Manual) Metamyelocytes # Myelocytes # Promyelocytes # Blast Cells # WBC Morphology Hypersegmented Neuts Hyposegmented Neuts Hypogranular Neuts Smudge Cells Toxic Granulation Toxic Vacuolation Dohle Bodies Pelger-Huet Anomaly Mark Rods Platelet Estimate Clumped Platelets Plt Clumps, EDTA Large Platelets Giant Platelets Platelet Satelliting Plt Morphology Comment RBC Morphology Dimorphic RBCs Polychromasia Hypochromasia Poikilocytosis Anisocytosis Microcytosis Macrocytosis Spherocytes Pappenheimer Bodies Sickle Cells Target Cells Tear Drop Cells Ovalocytes Helmet Cells Cheema-Montgomery Bodies Seeley Rings Osvaldo Cells Bite Cells Crenated Cell Elliptocytes Acanthocytes (Spur) Rouleaux Hemoglobin C Crystals Schistocytes Malaria parasites Sunny Bodies Hem Pathologist Commnt Sodium 134 L Potassium 4.2 D Chloride 101.8 Carbon Dioxide 22 Anion Gap 14 BUN 5 L Creatinine 0.6 L Estimated GFR > 60 BUN/Creatinine Ratio 8 Glucose 89 Calcium 7.8 L C-Reactive Protein 1.00 Urine Color Urine Turbidity Urine pH Ur Specific [place] Urine Protein Urine Glucose (UA) Urine Ketones Urine Blood Urine Nitrite Urine Bilirubin Urine Urobilinogen Ur Leukocyte Esterase Urine WBC (Auto) Urine RBC (Auto) U Epithel Cells (Auto) Urine Mucus C. difficile Toxin A&B Blood Type Antibody Screen Crossmatch
[2018-03-15] MEDS: DELTASONE PO SCH (11:52)
[2018-03-15] MEDS: SODIUM CHLORIDE FLUSH SYRINGE 10 ML IV SCH (11:55)
[2018-03-15] MEDS ORDERED: FLAGYL PO SCH (14:00)
--- NOTE | 2018-03-15 16:57 | Discharge Summary ---
Providers - Providers Date of Admission: 03/14/18 01:28 Date of discharge: 03/15/18 Attending physician: KATERINA HAM 03/14/18 01:24 Consult to Physician [CONS] Urgent Comment: Consulting Provider: JUSTO CHAUHAN Physician Instructions: Reason For Exam: gib Primary care physician: [facility] [employer] Hospitalization Condition: Serious Hospital course: Assessment and Plan 1.ulcerative colitis flare 2.severe anemia- most likely from chronic blood loss -afebrile -WBC -WNL -CRP-WNL -stool C-diff negative -HGB 9.2 s/p transfusion of 4 units PRBCs -continue to monitor H/H and transfuse as needed -no active signs of bleeding-HD stable -last colonoscopy 2017 at [place] showed diffuse colonic erythema, friability, and ulcerations throughout the entire colon -clinically pt reports feeling better with diarrhea improved (BM 2 overnight and this am) and no abd pain or N/V -tolerating clears -will start on GI soft diet- okay to advance as tolerated -transition antibiotics from IV to PO -continue PO steroids -continue supportive care -Advance diet, prednisone taper Empiric antibiotics x 7 days with follow up clinic appt in 2 weeks -Discussed need for follow up with patient with understanding voiced- Referral to PCP and GI given Disposition: DC-01 TO HOME OR SELFCARE Core Measure Documentation - Palliative Care Palliative Care/ Comfort Measures: Not Applicable - Core Measures Any of the following diagnoses?: none Exam - Constitutional Vitals: Temp Pulse Resp BP Pulse Ox 98.0 F 67 14 94/57 100 03/15/18 11:55 03/15/18 11:55 03/15/18 11:55 03/15/18 11:55 03/15/18 11:55 General appearance: Present: no acute distress, well-nourished - EENT Eyes: Present: PERRL ENT: hearing intact, clear oral mucosa - Neck Neck: Present: supple, normal ROM - Respiratory Respiratory effort: normal Respiratory: bilateral: CTA - Cardiovascular Heart rate: 78 Rhythm: regular Heart Sounds: Present: S1 & S2. Absent: rub, click - Extremities Extremities: pulses symmetrical, No edema Peripheral Pulses: within normal limits - Abdominal General gastrointestinal: Present: soft, non-tender, non-distended, normal bowel sounds Male genitourinary: Present: normal - Integumentary Integumentary: Present: clear, warm, dry - Musculoskeletal Musculoskeletal: gait normal, strength equal bilaterally - Psychiatric Psychiatric: appropriate mood/affect, intact judgment & insight - Neurologic Neurologic: CNII-XII intact, moves all extremities - Allied Health Allied health notes reviewed: nursing, case management Plan Activity: no restrictions Diet: clear liquids Follow up with: PRIMARY CAREMD [Primary Care Provider] - 3-5 Days KEVIN MOCK MD [Staff Physician] - 7 Days DARYL RASMUSSEN MD [Staff Physician] - 7 Days
[2018-03-15 17:21] VITALS: BP 124/56
[2018-03-16] MEDS ORDERED: LEVAQUIN PO SCH (10:00)
== END 2018-03-15 17:30 | disposition home or self-care (01) | DRG 386 ==
LOC: ED 20:36 → 4A 03-14 01:28
PROVIDERS: ADMIT Internal Medicine; ATTEND Internal Medicine
PROC: 30233N1 Transfusion of Nonautologous Red Blood Cells into Peripheral Vein, Percutaneous Approach (ICD-10-PCS; principal; 2018-03-14)
DX: K51.80 Other ulcerative colitis without complications (principal); K62.5 Hemorrhage of anus and rectum; M19.90 Unspecified osteoarthritis, unspecified site; D50.0 Iron deficiency anemia secondary to blood loss (chronic); Z82.49 Family history of ischemic heart disease and other diseases of the circulatory system
CPT/HCPCS: 36415; 74176; 80048; 80053; 81001; 82271; 85007; 85014; 85018; 85025; 85610; 85730; 86140; 86850; 86900; 86901; 86920; 87045; 87324; 93005; 93010; J1956; J2405; J3480; J7030; J7040; J7512; P9016

== ENCOUNTER 2018-05-08 21:24 | Emergency (ER) | payer SELFPAY ==
[2018-05-09] MEDS ORDERED: NACL 0.9% 1000 ML 1,000 ML IV ONE ×2 (00:06→10:14)
[2018-05-09 01:05] LABS: Hemoglobin 8.7 gm/dl (11.8-15.2); Mean Corpuscular HGB Conc 30 % (32-34); Platelet Count 352 K/mm3 (140-440); Red Blood Count 4.17 M/mm3 (3.65-5.03)
[2018-05-09 01:07] LABS: Alanine Aminotransferase 10 units/L (7-56); Albumin 3.2 g/dL (3.9-5); BUN/Creatinine Ratio 9; Blood Urea Nitrogen 7 mg/dL (9-20); Calcium 8.3 mg/dL (8.4-10.2); Hemolysis Index 22; Lipase 35 units/L (13-60)
[2018-05-09 01:09] LABS: Mean Corpuscular Hemoglobin 21 pg (28-32); Mean Corpuscular Volume 70 fl (84-94)
[2018-05-09 05:55] LABS: Band Neutrophils # (Manual) 0.2 K/mm3; Basophils % (Manual) 0 % (0.0-1.8); Total Cells Counted 100
[2018-05-09 05:56] LABS: Anisocytosis 2+; Hypochromasia 2+
[2018-05-09 05:57] LABS: Platelet Estimate Consistent w Auto
[2018-05-09] MEDS ORDERED: ZOFRAN IV ONE ×2 (10:14→14:19)
[2018-05-09] MEDS ORDERED: MORPHINE IV ONE ×2 (10:14→14:19)
--- NOTE | 2018-05-09 10:17 | Emergency Department Report ---
ED General Adult HPI - General Chief complaint: Abdominal Pain Stated complaint: ABD PAIN Time Seen by Provider: 05/09/18 10:09 Source: patient Mode of arrival: Stretcher Limitations: No Limitations - History of Present Illness Initial comments: She presents to [facility] department with chief complaint of abdominal pain. Patient has a history of ulcer colitis and states my colitis is flaring up. HE Complains of nausea and diarrhea for the last 3 days. Describes the pain as sharp and intermittent in nature and describes nothing making it better or worse. Patient denies fever home. -: Gradual Location: abdomen Radiation: non-radiation Severity scale (0 -10): 7 Quality: sharp Consistency: constant Improves with: none Worsens with: none Associated Symptoms: denies other symptoms Treatments Prior to Arrival: none - Related Data Previous Rx's Medication Instructions Recorded Last Taken Type Prednisone [predniSONE 10 mg 10 mg PO .TAPER #1 tab.ds.pk 03/15/18 Unknown Rx (6-Day Pack, 21 Tabs)] metroNIDAZOLE [Flagyl] 500 mg PO Q8HR #21 tablet 03/15/18 Unknown Rx Amoxicillin/Potassium Clav 1 each PO BID #14 tablet 05/09/18 Unknown Rx [Augmentin 875-125 Tablet] HYDROcodone/APAP 5-325 [[place] 1 each PO Q6HR PRN #12 tablet 05/09/18 Unknown Rx 5/325] Ondansetron [Zofran Odt] 4 mg PO Q4-6H PRN #12 tab.rapdis 05/09/18 Unknown Rx Prednisone [predniSONE 10 mg 10 mg PO .TAPER #1 tab.ds.pk 05/09/18 Unknown Rx (6-Day Pack, 21 Tabs)] Promethazine [Phenergan TAB] 25 mg PO Q6HR PRN #12 tab 05/09/18 Unknown Rx Allergies Allergy/AdvReac Type Severity Reaction Status Date / Time No Known Allergies Allergy Verified 04/27/17 00:02 ED Review of Systems ROS: Stated complaint: ABD PAIN Other details as noted in HPI Comment: All other systems reviewed and negative Constitutional: denies: chills, fever Eyes: denies: eye pain, eye discharge, vision change ENT: denies: ear pain, throat pain Respiratory: denies: cough, shortness of breath, wheezing Cardiovascular: denies: chest pain, palpitations Endocrine: no symptoms reported Gastrointestinal: abdominal pain. denies: nausea, diarrhea Genitourinary: denies: urgency, dysuria Musculoskeletal: denies: back pain, joint swelling, arthralgia Skin: denies: rash, lesions Neurological: denies: headache, weakness, paresthesias Psychiatric: denies: anxiety, depression Hematological/Lymphatic: denies: easy bleeding, easy bruising ED Past Medical Hx - Past Medical History Hx Arthritis: Yes (Back and right hip) Additional medical history: Colitis - Surgical History Past Surgical History?: No - Social History Smoking Status: Never Smoker Substance Use Type: None - Medications Home Medications: Home Medications Medication Instructions Recorded Confirmed Last Taken Type Prednisone [predniSONE 10 mg 10 mg PO .TAPER #1 tab.ds.pk 03/15/18 Unknown Rx (6-Day Pack, 21 Tabs)] metroNIDAZOLE [Flagyl] 500 mg PO Q8HR #21 tablet 03/15/18 Unknown Rx Amoxicillin/Potassium Clav 1 each PO BID #14 tablet 05/09/18 Unknown Rx [Augmentin 875-125 Tablet] HYDROcodone/APAP 5-325 [[place] 1 each PO Q6HR PRN #12 tablet 05/09/18 Unknown Rx 5/325] Ondansetron [Zofran Odt] 4 mg PO Q4-6H PRN #12 tab.rapdis 05/09/18 Unknown Rx Prednisone [predniSONE 10 mg 10 mg PO .TAPER #1 tab.ds.pk 05/09/18 Unknown Rx (6-Day Pack, 21 Tabs)] Promethazine [Phenergan TAB] 25 mg PO Q6HR PRN #12 tab 05/09/18 Unknown Rx ED Physical Exam - General Limitations: No Limitations General appearance: alert, in no apparent distress - Head Head exam: Present: atraumatic, normocephalic - Eye Eye exam: Present: normal appearance - ENT ENT exam: Present: other (dry mucous membranes) - Neck Neck exam: Present: normal inspection - Respiratory Respiratory exam: Present: normal lung sounds bilaterally. Absent: respiratory distress - Cardiovascular Cardiovascular Exam: Present: normal rhythm, other (tachycardic). Absent: systolic murmur, diastolic murmur, rubs, gallop - GI/Abdominal GI/Abdominal exam: Present: soft, normal bowel sounds. Absent: distended, tenderness - Rectal Rectal exam: Present: deferred - Extremities Exam Extremities exam: Present: normal inspection - Back Exam Back exam: Present: normal inspection - Neurological Exam Neurological exam: Present: alert, oriented X3, CN II-XII intact. Absent: motor sensory deficit - Psychiatric Psychiatric exam: Present: normal affect, normal mood - Skin Skin exam: Present: warm, dry, intact, normal color. Absent: rash ED Course Vital Signs 05/08/18 22:01 Temperature 98.3 F Pulse Rate 94 H Respiratory 18 Rate Blood Pressure 94/63 O2 Sat by Pulse 100 Oximetry ED Medical Decision Making - Lab Data Result diagrams: 05/09/18 00:10 05/09/18 00:10 - Medical Decision Making Patient politely declined CAT scan of his abdomen studies had multiple CAT scans in the past Discussed results with patient Critical care attestation.: If time is entered above; I have spent that time in minutes in the direct care of this critically ill patient, excluding procedure time. ED Disposition Clinical Impression: Abdominal pain Disposition: DC-01 TO HOME OR SELFCARE Is pt being admited?: No Does the pt Need Aspirin: No Condition: Stable Instructions: Abdominal Pain (ED) Additional Instructions: Return if worse Prescriptions: Amoxicillin/Potassium Clav [Augmentin 875-125 Tablet] 1 each PO BID #14 tablet HYDROcodone/APAP 5-325 [[place] 5/325] 1 each PO Q6HR PRN #12 tablet PRN Reason: Pain Ondansetron [Zofran Odt] 4 mg PO Q4-6H PRN #12 tab.rapdis PRN Reason: Nausea Prednisone [predniSONE 10 mg (6-Day Pack, 21 Tabs)] 10 mg PO .TAPER #1 tab.ds.pk Promethazine [Phenergan TAB] 25 mg PO Q6HR PRN #12 tab PRN Reason: Nausea Referrals: PRIMARY CAREMD [Primary Care Provider] - 3-5 Days CATE POP MD [Staff Physician] - 3-5 Days [facility] [Outside] - 3-5 Days Time of Disposition: 15:23
--- NOTE | 2018-05-09 10:53 | XRay Report ---
Abdominal series: History: Abdominal pain. Findings: Normal lungs. Distended loops of small bowel with air-fluid levels. No air identified in the colon. No radiopaque calculus or abnormal calcification. Impression: Findings suggestive of small bowel obstruction.
[2018-05-09] MEDS ORDERED: NORCO 10/325 PO ONE (13:24)
[2018-05-09] MEDS ORDERED: ZOFRAN ODT PO ONE (13:24)
--- NOTE | 2018-05-09 15:07 | Cat Scan Report ---
FINAL REPORT PROCEDURE: CT ABDOMEN PELVIS W CON TECHNIQUE: Computerized axial tomography of the abdomen and pelvis was performed after the IV injection of iodinated nonionic contrast. HISTORY: sbo COMPARISON: Prior CT scan abdomen and pelvis 03/14/2018 FINDINGS: Lower Lung dye: No focal abnormality seen. Upper Abdomen: Gallbladder is distended otherwise unremarkable. The intrahepatic ducts are minimally prominent. The liver showed no focal abnormalities. The adrenal glands, the pancreas and spleen are unremarkable. Kidneys, Ureters and Urinary bladder: Subcentimeter renal cortical cysts appear to be visualized on the right. The kidneys, the ureters and urinary bladder otherwise are unremarkable.. Retroperitoneum: Abdominal aorta is normal appearance. Nonspecific subcentimeter lymph nodes are seen in the retroperitoneum. No pathologically enlarged lymph nodes are identified. Bowel: Wall thickening seen diffusely throughout the colon on the prior study has improved however there is still wall thickening visualized in the rectum and proximal sigmoid colon, mid descending colon, distal transverse colon and in the ascending colon. There appears to be circumferential narrowing in the ascending colon proximally on coronal image 46 series 07/02 extending over approximately 2.4 centimeters.. This may represent residual inflammatory change. I cannot exclude developing recurrent inflammatory change, strictures or even malignancy particularly on the right. The colon is fluid and gas filled and mildly distended. There several loops of small bowel fluid filled in the left lower quadrant. This is nonspecific. I do not see evidence of bowel obstruction. There is no ascites or free intraperitoneal gas. Reproductive organs: There is nonspecific mild prostate enlargement. Other: No acute bony abnormalities are seen. There appears to be a moderate diffuse disc bulge greatest centrally at the L4-5 level. An asymmetric disc protrusion or herniation also appears to be present at L5-S1 on the right. I suspect there is displacement of the right S1 nerve root. IMPRESSION: Wall thickening visualized in segments of the colon as described. Etiology is uncertain. This could represent residual or recurrent inflammatory change including inflammatory bowel disease. Infectious etiology not excluded nor is malignancy particularly on the right as described. I do not see evidence of bowel obstruction. Gallbladder is distended in the intrahepatic ducts mildly prominent. The biliary system is otherwise unremarkable. If clinically indicated gallbladder ultrasound could be obtained for further evaluation. There is nonspecific mild diffuse prostate enlargement. Degenerative disc disease visualized lower lumbar spine as described above.
[2018-05-09 15:30] VITALS: BP 90/44
== END 2018-05-09 16:32 | disposition home or self-care (01) ==
LOC: ED 21:24
DX: R10.9 Unspecified abdominal pain (principal); R11.0 Nausea; R19.7 Diarrhea, unspecified; M13.851 Other specified arthritis, right hip; M13.88 Other specified arthritis, other site; Z79.899 Other long term (current) drug therapy
CPT/HCPCS: 36415; 74022; 74177; 80053; 83690; 85007; 85025; 96361; 96374; 96375; 96376; 99285; J2270; J2405; J7030; Q9967

== ENCOUNTER 2018-06-04 20:36 | Inpatient (IN) | payer OTHER ==
[2018-06-04] MEDS ORDERED: NACL 0.9% 1000 ML 1,000 ML IV ONE ×2 (21:02→22:50)
[2018-06-04 21:42] LABS: Mean Corpuscular HGB Conc 29 % (32-34); Platelet Count 383 K/mm3 (140-440); Red Cell Distribution Width 19.4 % (13.2-15.2)
[2018-06-04 21:47] LABS: Hematocrit 26.8 % (35.5-45.6); Hemoglobin 7.7 gm/dl (11.8-15.2); Mean Corpuscular Hemoglobin 19 pg (28-32); Mean Corpuscular Volume 67 fl (84-94)
[2018-06-04 21:49] LABS: Partial Thromboplastin Time 30.5 Sec. (24.2-36.6)
[2018-06-04 21:52] LABS: Alanine Aminotransferase 8 units/L (7-56); Albumin 3.2 g/dL (3.9-5); BUN/Creatinine Ratio 9; Blood Urea Nitrogen 7 mg/dL (9-20); Calcium 8.6 mg/dL (8.4-10.2); Hemolysis Index 0; Lipase 42 units/L (13-60)
--- NOTE | 2018-06-04 22:45 | Emergency Department Report ---
ED GI Bleed HPI - General Chief complaint: GI Bleed Stated complaint: UPPER EPIGASTRIC PAIN Time Seen by Provider: 06/04/18 22:44 Source: patient, EMS Mode of arrival: Ambulatory Limitations: No Limitations - History of Present Illness Initial comments: Patient complains of abdominal pain and rectal bleeding. He has a history of ulcerative colitis. MD complaint: blood streaked stool -: Gradual Location: diffuse Radiation: none Severity scale (0 -10): 6 Quality: sharp Consistency: constant Improves with: none Worsens with: none Context: history of GI bleed Associated Symptoms: abdominal pain. denies: nausea, vomiting Treatments Prior to Arrival: none - Related Data Previous Rx's Medication Instructions Recorded Last Taken Type Prednisone [predniSONE 10 mg 10 mg PO .TAPER #1 tab.ds.pk 03/15/18 Unknown Rx (6-Day Pack, 21 Tabs)] metroNIDAZOLE [Flagyl] 500 mg PO Q8HR #21 tablet 03/15/18 Unknown Rx Amoxicillin/Potassium Clav 1 each PO BID #14 tablet 05/09/18 Unknown Rx [Augmentin 875-125 Tablet] HYDROcodone/APAP 5-325 [[place] 1 each PO Q6HR PRN #12 tablet 05/09/18 Unknown Rx 5/325] Ondansetron [Zofran Odt] 4 mg PO Q4-6H PRN #12 tab.rapdis 05/09/18 Unknown Rx Prednisone [predniSONE 10 mg 10 mg PO .TAPER #1 tab.ds.pk 05/09/18 Unknown Rx (6-Day Pack, 21 Tabs)] Promethazine [Phenergan TAB] 25 mg PO Q6HR PRN #12 tab 05/09/18 Unknown Rx Allergies Allergy/AdvReac Type Severity Reaction Status Date / Time No Known Allergies Allergy Verified 04/27/17 00:02 ED Review of Systems ROS: Stated complaint: UPPER EPIGASTRIC PAIN Other details as noted in HPI Comment: All other systems reviewed and negative Constitutional: denies: chills, fever Eyes: denies: eye pain ENT: denies: ear pain Respiratory: denies: cough, orthopnea, shortness of breath Cardiovascular: denies: chest pain, palpitations, dyspnea on exertion Endocrine: no symptoms reported Gastrointestinal: abdominal pain. denies: nausea, vomiting, diarrhea Genitourinary: denies: urgency, dysuria Musculoskeletal: denies: back pain, joint swelling Skin: denies: rash, lesions Neurological: denies: headache, weakness, numbness Psychiatric: denies: anxiety, depression Hematological/Lymphatic: denies: easy bleeding, easy bruising ED Past Medical Hx - Past Medical History Hx Arthritis: Yes (Back and right hip) Additional medical history: colitis with blood transfusions 03/2018 - Surgical History Past Surgical History?: No - Social History Smoking Status: Never Smoker Substance Use Type: None - Medications Home Medications: Home Medications Medication Instructions Recorded Confirmed Last Taken Type Prednisone [predniSONE 10 mg 10 mg PO .TAPER #1 tab.ds.pk 03/15/18 Unknown Rx (6-Day Pack, 21 Tabs)] metroNIDAZOLE [Flagyl] 500 mg PO Q8HR #21 tablet 03/15/18 Unknown Rx Amoxicillin/Potassium Clav 1 each PO BID #14 tablet 05/09/18 Unknown Rx [Augmentin 875-125 Tablet] HYDROcodone/APAP 5-325 [[place] 1 each PO Q6HR PRN #12 tablet 05/09/18 Unknown Rx 5/325] Ondansetron [Zofran Odt] 4 mg PO Q4-6H PRN #12 tab.rapdis 05/09/18 Unknown Rx Prednisone [predniSONE 10 mg 10 mg PO .TAPER #1 tab.ds.pk 05/09/18 Unknown Rx (6-Day Pack, 21 Tabs)] Promethazine [Phenergan TAB] 25 mg PO Q6HR PRN #12 tab 05/09/18 Unknown Rx ED Physical Exam - General Limitations: No Limitations General appearance: alert, in no apparent distress - Head Head exam: Present: atraumatic, normocephalic, normal inspection - Eye Eye exam: Present: normal appearance, PERRL, EOMI Pupils: Present: normal accommodation - ENT ENT exam: Present: normal exam, normal orophraynx, mucous membranes moist - Neck Neck exam: Present: normal inspection, full ROM. Absent: tenderness - Respiratory Respiratory exam: Present: normal lung sounds bilaterally. Absent: respiratory distress, wheezes, rales, rhonchi, stridor - Cardiovascular Cardiovascular Exam: Present: regular rate, normal rhythm, normal heart sounds - GI/Abdominal GI/Abdominal exam: Present: soft, tenderness, normal bowel sounds. Absent: distended, guarding, rebound, rigid - Rectal Rectal exam: Present: heme (+) stool, other (Charperonw was Ms. Doris RN.) - Extremities Exam Extremities exam: Present: normal inspection, full ROM, normal capillary refill - Back Exam Back exam: Present: normal inspection, full ROM. Absent: tenderness - Neurological Exam Neurological exam: Present: alert, oriented X3, CN II-XII intact - Psychiatric Psychiatric exam: Present: normal affect, normal mood - Skin Skin exam: Present: warm, dry, intact, normal color. Absent: rash ED Course Vital Signs 06/05/18 06/05/18 06/05/18 01:00 01:11 01:21 Temperature Pulse Rate 81 77 74 Respiratory 12 15 16 Rate Blood Pressure 97/58 97/58 101/63 O2 Sat by Pulse 99 99 99 Oximetry 06/05/18 06/05/18 06/05/18 01:30 01:41 01:51 Temperature Pulse Rate 88 76 76 Respiratory 13 15 14 Rate Blood Pressure 98/57 98/57 89/41 O2 Sat by Pulse 99 100 99 Oximetry 06/05/18 06/05/18 06/05/18 02:00 02:11 02:21 Temperature Pulse Rate 83 77 75 Respiratory 18 14 16 Rate Blood Pressure 89/41 83/43 87/47 O2 Sat by Pulse 99 99 99 Oximetry 06/05/18 06/05/18 06/05/18 02:24 02:30 02:41 Temperature 98.6 F Pulse Rate 78 78 Respiratory 16 15 Rate Blood Pressure 91/34 91/34 O2 Sat by Pulse 100 100 Oximetry 06/05/18 06/05/18 06/05/18 02:51 03:00 03:10 Temperature Pulse Rate 73 78 72 Respiratory 12 10 L 16 Rate Blood Pressure 86/28 91/40 95/47 O2 Sat by Pulse 100 100 98 Oximetry 06/05/18 06/05/18 06/05/18 03:20 03:30 03:40 Temperature Pulse Rate 70 69 75 Respiratory 15 19 16 Rate Blood Pressure 96/44 96/45 95/42 O2 Sat by Pulse 100 100 100 Oximetry 06/05/18 06/05/18 06/05/18 03:50 04:00 04:10 Temperature Pulse Rate 69 69 68 Respiratory 16 15 14 Rate Blood Pressure 99/43 102/41 100/42 O2 Sat by Pulse 100 100 100 Oximetry 06/05/18 06/05/18 06/05/18 04:31 05:25 05:30 Temperature Pulse Rate 68 68 66 Respiratory 14 13 13 Rate Blood Pressure 99/51 95/56 103/62 O2 Sat by Pulse 100 100 100 Oximetry 06/05/18 06/05/18 05:45 05:50 Temperature Pulse Rate 66 66 Respiratory 14 13 Rate Blood Pressure 99/62 104/62 O2 Sat by Pulse 100 100 Oximetry - Reevaluation(s) Reevaluation #1: 06/04/18 23:12 I consulted the Surety Bond Agent pulmonary physical therapist for Dr. Joshua. He wants patient admitted by the hospitalist and given Solu-Medrol IV and he will see the patient tomorrow morning. I discussed patient care with the hospitalist on-call Dr Francisco, he will admit patient to the hospital for further evaluation and management. ED Medical Decision Making - Lab Data Result diagrams: 06/05/18 00:24 06/04/18 21:21 - Radiology Data Radiology results: report reviewed, image reviewed - Medical Decision Making Ulcerative Colitis. Abdominal Pain. Critical care attestation.: If time is entered above; I have spent that time in minutes in the direct care of this critically ill patient, excluding procedure time. ED Disposition Clinical Impression: Rectal bleeding, Severe anemia, Symptomatic anemia Ulcerative colitis Qualifiers: Ulcerative colitis location: unspecified ulcerative colitis location Digestive disease complication type: unspecified complication Qualified Code(s): K51.919 - Ulcerative colitis, unspecified with unspecified complications Abdominal pain Qualifiers: Abdominal location: generalized Qualified Code(s): R10.84 - Generalized abdominal pain Disposition: OP ADMIT IP TO THIS HOSP Is pt being admited?: Yes Does the pt Need Aspirin: No Condition: Fair Time of Disposition: 23:11
[2018-06-04] MEDS ORDERED: NACL 0.9% 500 ML 500 ML IV ONE (22:48)
[2018-06-04] MEDS ORDERED: SOLU-Medrol IV ONE (23:09)
[2018-06-04 23:29] LABS: Anisocytosis 1+; Band Neutrophils # (Manual) 0.2 K/mm3; Hypochromasia 1+; Platelet Estimate Consistent w Auto; Total Cells Counted 100
[2018-06-04] MEDS ORDERED: ZOFRAN IV PRN (23:44)
[2018-06-04] MEDS ORDERED: MORPHINE IV PRN (23:44)
[2018-06-05 00:56] LABS: Hematocrit 23.3 % (35.5-45.6); Hemoglobin 6.7 gm/dl (11.8-15.2)
--- NOTE | 2018-06-05 04:45 | History and Physical Report ---
CHIEF COMPLAINT: Rectal bleeding. Other complaint include abdominal pain. HISTORY OF PRESENT ILLNESS: The patient is a 38-year-old male, who has been having rectal bleeding associated with abdominal pain. There is no history of nausea, vomiting, no history of diarrhea or constipation. The patient also denied history of fever or chills and presented for evaluation. The patient's abdominal pain is mainly in the epigastric area and does not radiate. PAST MEDICAL HISTORY: Pertinent for arthritis and ulcerative colitis. PAST SURGICAL HISTORY: Unremarkable. FAMILY HISTORY: Noncontributory. SOCIAL HISTORY: The patient does not smoke, does not drink alcohol, and does not use illicit drugs. MEDICATIONS: The patient is on prednisone dose pack 10 mg. Also, the patient is on Flagyl 500 mg by mouth every 8 hours, Augmentin 875/175 mg 1 by mouth twice daily, [place] 5/325 mg 1 by mouth every 6 hours, Zofran 4 mg by mouth every 4-6 hours as needed for nausea and vomiting. Also, the patient is on Phenergan 25 mg by mouth every 6 hours as needed for nausea and vomiting. ALLERGIES: There are no known drug allergies. REVIEW OF SYSTEMS: CONSTITUTIONAL: There is no fever, no chills. No diaphoresis. HEENT: There is no headache or sore throat. CARDIOVASCULAR: There is no chest pain or orthopnea. RESPIRATORY: There is no shortness of breath or cough. GASTROINTESTINAL: Abdominal pain is present. There is no nausea, no vomiting, no diarrhea or constipation. Rectal bleeding is noted. NEUROLOGICAL SYSTEM: There is no numbness, no dizziness, no altered mental status. MUSCULOSKELETAL SYSTEM: There is no joint pain or swelling. DERMATOLOGICAL SYSTEM: There is no skin rash or itching. GENITOURINARY SYSTEM: There is no dysuria, hematuria or flank pain. Rest of system review is normal. PHYSICAL EXAMINATION: GENERAL: At the time of exam, the patient was found to be alert, oriented x 3 and in mild distress due to abdominal pain. VITAL SIGNS: Shows normal temperature, pulse of 72, respirations 16, blood pressure 95/47, O2 sat of 98% on room air. HEENT: Showed pupils to be equal, round, reactive to light and accommodating. Extraocular muscles are intact. NECK: Supple with no JVD or carotid bruit. CARDIOVASCULAR: Showed normal first and second heart sounds with no gallops or murmurs. RESPIRATORY SYSTEM: Show good air entry on both sides of the lungs with no abnormal breath sounds. GASTROINTESTINAL: Show abdomen to be full, soft with generalized tenderness with no guarding, no rigidity, no rebound tenderness. NEUROLOGIC: Showed no focal deficit. MUSCULOSKELETAL SYSTEM: Show no joint swelling or tenderness. DERMATOLOGICAL: Show no skin rash. GENITOURINARY: Showing no costovertebral angle tenderness. PERTINENT LABORATORY AND IMAGING STUDIES: The patient has CBC done with normal white count, low hemoglobin of 7.7, low hematocrit of 26.8, low MCV of 67 and low MCHC of 29. The patient's coagulation studies were unremarkable. Chemistry showed low potassium level of 3.5, low BUN of 7, low albumin level of 3.2. IMAGING STUDIES: The patient has no imaging studies done at this time. DIAGNOSES: 1. Rectal bleed. 2. Abdominal pain. 3. Ulcerative colitis exacerbation. PLAN: 1. The patient will be admitted to ICU because of active rectal bleeding. 2. The patient will have hemoglobin and hematocrit checked every 6 hours x 4 more levels. 3. The patient will continue GI consult with Dr. Joshua requested by the Emergency Room physician. 4. The patient will have critical care consult with Dr. Knox for ICU admission. 5. The patient will be n.p.o. until seen by the payroll human resources assistant and will be on IV morphine 2 mg every 3 hours as needed for pain. 6. The patient will be on IV Zofran 4 mg every 6 hours as needed for nausea and vomiting and will be on IV Protonix 40 mg twice daily. 7. The patient will be on IV normal saline at 125 mL an hour and will be on IV Solu-Medrol 60 mg every 8 hours. 8. The patient will remain n.p.o. until seen by the payroll human resources assistant. JOB# [id number] OCN/NTS
--- NOTE | 2018-06-05 05:38 | Cat Scan Report ---
FINAL REPORT EXAM: CT ABDOMEN PELVIS W CON HISTORY: abdominal pain TECHNIQUE: Routine axial imaging was obtained of the abdomen and pelvis following the intravenous injection of 100 cc of Omnipaque 300. Oral Gastroview was also administered. Delayed imaging was obtained through the kidneys ureters and bladder. Sagittal and coronal reconstructions were reviewed. Comparison is made to the study of 05/09/2018. FINDINGS: The lung bases are negative for infiltrates or effusions. The liver, gallbladder, biliary tree, pancreas, spleen, and adrenal glands appear normal. The kidneys enhance normally. There is a 8 millimeter cortical cyst anterior the right kidney. There is no evidence of hydronephrosis. The abdominal aorta and vascular structures otherwise enhance normally. The bowel loops are not distended. The appendix is not seen. There is circumferential mucosal thickening in the rectum without inflammatory changes of the perirectal fat. Proctitis still cannot be excluded. There is an abrupt transition point at the junction of the sigmoid colon and rectum. Adenopathy is not seen. In the pelvis the prostate gland and bladder appear normal. The skeletal structures do not show any acute changes. IMPRESSION: Circumferential mucosal thickening in the rectum as described. Proctitis is suspected. Abrupt transition point from the sigmoid colon and rectum as described. Endoscopic evaluation is recommended to definitely exclude an occult lesion to account for this. 8 millimeter benign cortical cyst anteriorly right kidney. No evidence of hydronephrosis.
[2018-06-05] MEDS ORDERED: SOLU-Medrol IV SCH (06:00)
[2018-06-05 07:21] LABS: Hematocrit 30.9 % (35.5-45.6); Hemoglobin 9.5 gm/dl (11.8-15.2)
--- NOTE | 2018-06-05 09:30 | Gastroenterology Consultation ---
History of Present Illness - Reason for Consult Consult date: 06/05/18 Ulcerative colitis flare, anemia Requesting physician: NADIA GUILLERMO - History of Present Illness The patient is a 38-year-old man who reports having ulcerative colitis for approximately 10 years admitted with severe anemia and a flare of his colitis manifested by abdominal pain and bleeding. He does have intermittent rectal bleeding and diarrhea on a regular basis. He was found to have a hemoglobin of 6.7 on emergency room evaluation and was admitted for observation and transfusion. He has never had regular care of his ulcerative colitis which he attributes to not having health insurance. Patient reports at least 7 visits to the emergency room in the past year and was seen by our service 2-3 months ago with a flare. He apparently had a colonoscopy in 2017 at [facility] revealing diffuse pancolitis. He has been on mesalamine intermittently over the years and steroids from hospitalizations. The patient reports arthralgias but no eye problems, skin rashes, or mouth ulcers. He has no family history of inflammatory bowel disease. Past History Past Medical History: other (Ulcerative colitis) Past Surgical History: No surgical history Social history: no significant social history, single. denies: smoking, alcohol abuse, prescription drug abuse Family history: no significant family history (No FH of IBD) Medications and Allergies Allergies Allergy/AdvReac Type Severity Reaction Status Date / Time No Known Allergies Allergy Verified 04/27/17 00:02 Home Medications Medication Instructions Recorded Confirmed Last Taken Type Prednisone [predniSONE 10 mg 10 mg PO .TAPER #1 tab.ds.pk 03/15/18 Unknown Rx (6-Day Pack, 21 Tabs)] metroNIDAZOLE [Flagyl] 500 mg PO Q8HR #21 tablet 03/15/18 Unknown Rx Amoxicillin/Potassium Clav 1 each PO BID #14 tablet 05/09/18 Unknown Rx [Augmentin 875-125 Tablet] HYDROcodone/APAP 5-325 [[place] 1 each PO Q6HR PRN #12 tablet 05/09/18 Unknown Rx 5/325] Ondansetron [Zofran Odt] 4 mg PO Q4-6H PRN #12 tab.rapdis 05/09/18 Unknown Rx Prednisone [predniSONE 10 mg 10 mg PO .TAPER #1 tab.ds.pk 05/09/18 Unknown Rx (6-Day Pack, 21 Tabs)] Promethazine [Phenergan TAB] 25 mg PO Q6HR PRN #12 tab 05/09/18 Unknown Rx Active Meds: Active Medications Sodium Chloride (Nacl 0.9% 1000 Ml) 1,000 mls @ 125 mls/hr IV DIRECT MALICK Methylprednisolone Sodium Succinate (Solu-Medrol) 60 mg IV Q8HR [facility] Morphine Sulfate (Morphine) 2 mg IV Q3H PRN PRN Reason: Pain, Moderate (4-6) Ondansetron HCl (Zofran) 4 mg IV Q6H PRN PRN Reason: Nausea And Vomiting Pantoprazole Sodium (Protonix) 40 mg IV BID [facility] Review of Systems - Review of Systems Constitutional: fatigue, weakness, no weight loss, no weight gain, no fever, no chills, no chronic pain Eyes: no change in vision, no double vision Ears, Nose, Throat: no decreased hearing, no difficulty swallowing, no epistaxis , no painful swallowing Breasts: deferred Cardiovascular: no chest pain, no edema, no rapid/irregular heart beat, no shortness of breath Respiratory: no cough, no shortness of breath, no wheezing Gastrointestinal: abdominal pain, diarrhea, BRBPR, no nausea, no vomiting, no constipation, no coffee ground emesis, no melena, no early satiety, no jaundice Rectal: no pain Male Genitourinary: deferred Musculoskeletal: no gait dysfunction, no joint pain, no muscle pain Integumentary: no deferred, no rash, no pruritis, no jaundice Neurological: no paralysis, no weakness Psychiatric: no anxiety, no memory loss, no change in sleep habits Endocrine: no cold intolerance Hematologic/Lymphatic: no easy bruising, no easy bleeding Allergic/Immunologic: no wheezing Exam - Constitutional Vital Signs: Temp Pulse Resp BP Pulse Ox 98.4 F 67 15 106/65 100 06/05/18 08:00 06/05/18 07:30 06/05/18 07:30 06/05/18 07:30 06/05/18 07:30 General appearance: no acute distress, well-nourished - EENT Eyes: PERRL ENT: hearing intact, clear oral mucosa, dentition normal - Neck Neck: supple, normal ROM, no masses or JVD - Respiratory Respiratory effort: normal Respiratory: bilateral: CTA - Breasts Breasts: deferred - Cardiovascular Rhythm: regular Heart Sounds: Present: S1 & S2. Absent: gallop, rub Extremities: pulses intact, No edema, normal color, Full ROM - Gastrointestinal General gastrointestinal: Present: soft, non-tender, non-distended, normal bowel sounds. Absent: hepatomegaly, splenomegaly, mass Rectal Exam: deferred - Genitourinary Male Genitourinary: deferred - Integumentary Integumentary: Present: clear, warm, dry - Musculoskeletal Musculoskeletal: normal - Neurologic Neurological: alert and oriented x3 - Psychiatric Psychiatric: appropriate mood/affect, intact judgment & insight, memory intact - Labs CBC & Chem 7: 06/05/18 07:09 06/04/18 21:21 Lab Results: Laboratory Results - last 24 hr 06/04/18 06/04/18 06/04/18 21:19 21:21 21:21 WBC 8.0 RBC 4.00 Hgb 7.7 L Hct 26.8 L MCV 67 L MCH 19 L MCHC 29 L RDW 19.4 H Plt Count 383 Add Manual Diff Complete Total Counted 100 Seg Neuts % (Manual) 53.0 Band Neutrophils % 2.0 Lymphocytes % (Manual) 33.0 Reactive Lymphs % (Man) 0 Monocytes % (Manual) 4.0 Eosinophils % (Manual) 7.0 H Basophils % (Manual) 1.0 Metamyelocytes % 0 Myelocytes % 0 Promyelocytes % 0 Blast Cells % 0 Nucleated RBC % Not Reportable Seg Neutrophils # Man 4.2 Band Neutrophils # 0.2 Lymphocytes # (Manual) 2.6 Abs React Lymphs (Man) 0.0 Monocytes # (Manual) 0.3 Eosinophils # (Manual) 0.6 H Basophils # (Manual) 0.1 Metamyelocytes # 0.0 Myelocytes # 0.0 Promyelocytes # 0.0 Blast Cells # 0.0 WBC Morphology Not Reportable Hypersegmented Neuts Not Reportable Hyposegmented Neuts Not Reportable Hypogranular Neuts Not Reportable Smudge Cells Not Reportable Toxic Granulation Not Reportable Toxic Vacuolation Not Reportable Dohle Bodies Not Reportable Pelger-Huet Anomaly Not Reportable Mark Rods Not Reportable Platelet Estimate Consistent w auto Clumped Platelets Not Reportable Plt Clumps, EDTA Not Reportable Large Platelets Not Reportable Giant Platelets Not Reportable Platelet Satelliting Not Reportable Plt Morphology Comment Not Reportable RBC Morphology Not Reportable Dimorphic RBCs Not Reportable Polychromasia Not Reportable Hypochromasia 1+ Poikilocytosis Not Reportable Anisocytosis 1+ Microcytosis 1+ Macrocytosis Not Reportable Spherocytes Not Reportable Pappenheimer Bodies Not Reportable Sickle Cells Not Reportable Target Cells Not Reportable Tear Drop Cells Not Reportable Ovalocytes Not Reportable Helmet Cells Not Reportable Cheema-[place] Bodies Not Reportable [place] Rings Not Reportable [place] Cells Not Reportable Bite Cells Not Reportable Crenated Cell Not Reportable Elliptocytes Not Reportable Acanthocytes (Spur) Not Reportable Rouleaux Not Reportable Hemoglobin C Crystals Not Reportable Schistocytes Not Reportable Malaria parasites Not Reportable Sunny Bodies Not Reportable Hem Pathologist Commnt No PT 13.7 INR 1.00 APTT 30.5 Sodium Potassium Chloride Carbon Dioxide Anion Gap BUN Creatinine Estimated GFR BUN/Creatinine Ratio Glucose Calcium Total Bilirubin AST ALT Alkaline Phosphatase Total Protein Albumin Albumin/Globulin Ratio Lipase Blood Type O POSITIVE Antibody Screen Negative Crossmatch See Detail 06/04/18 06/05/18 06/05/18 21:21 00:24 07:09 WBC RBC Hgb 6.7 L 9.5 L Hct 23.3 L 30.9 L D MCV MCH MCHC RDW Plt Count Add Manual Diff Total Counted Seg Neuts % (Manual) Band Neutrophils % Lymphocytes % (Manual) Reactive Lymphs % (Man) Monocytes % (Manual) Eosinophils % (Manual) Basophils % (Manual) Metamyelocytes % Myelocytes % Promyelocytes % Blast Cells % Nucleated RBC % Seg Neutrophils # Man Band Neutrophils # Lymphocytes # (Manual) Abs React Lymphs (Man) Monocytes # (Manual) Eosinophils # (Manual) Basophils # (Manual) Metamyelocytes # Myelocytes # Promyelocytes # Blast Cells # WBC Morphology Hypersegmented Neuts Hyposegmented Neuts Hypogranular Neuts Smudge Cells Toxic Granulation Toxic Vacuolation Dohle Bodies Pelger-Huet Anomaly Mark Rods Platelet Estimate Clumped Platelets Plt Clumps, EDTA Large Platelets Giant Platelets Platelet Satelliting Plt Morphology Comment RBC Morphology Dimorphic RBCs Polychromasia Hypochromasia Poikilocytosis Anisocytosis Microcytosis Macrocytosis Spherocytes Pappenheimer Bodies Sickle Cells Target Cells Tear Drop Cells Ovalocytes Helmet Cells Cheema-[place] Bodies [place] Rings [place] Cells Bite Cells Crenated Cell Elliptocytes Acanthocytes (Spur) Rouleaux Hemoglobin C Crystals Schistocytes Malaria parasites Sunny Bodies Hem Pathologist Commnt PT INR APTT Sodium 140 Potassium 3.5 L Chloride 105.4 Carbon Dioxide 23 Anion Gap 15 BUN 7 L Creatinine 0.8 Estimated GFR > 60 BUN/Creatinine Ratio 9 Glucose 77 Calcium 8.6 Total Bilirubin 0.30 AST 15 ALT 8 Alkaline Phosphatase 85 Total Protein 7.0 Albumin 3.2 L Albumin/Globulin Ratio 0.8 Lipase 42 Blood Type Antibody Screen Crossmatch Laboratory Results - last 24 hr 06/04/18 06/04/18 06/04/18 21:19 21:21 21:21 WBC 8.0 RBC 4.00 Hgb 7.7 L Hct 26.8 L MCV 67 L MCH 19 L MCHC 29 L RDW 19.4 H Plt Count 383 Add Manual Diff Complete Total Counted 100 Seg Neuts % (Manual) 53.0 Band Neutrophils % 2.0 Lymphocytes % (Manual) 33.0 Reactive Lymphs % (Man) 0 Monocytes % (Manual) 4.0 Eosinophils % (Manual) 7.0 H Basophils % (Manual) 1.0 Metamyelocytes % 0 Myelocytes % 0 Promyelocytes % 0 Blast Cells % 0 Nucleated RBC % Not Reportable Seg Neutrophils # Man 4.2 Band Neutrophils # 0.2 Lymphocytes # (Manual) 2.6 Abs React Lymphs (Man) 0.0 Monocytes # (Manual) 0.3 Eosinophils # (Manual) 0.6 H Basophils # (Manual) 0.1 Metamyelocytes # 0.0 Myelocytes # 0.0 Promyelocytes # 0.0 Blast Cells # 0.0 WBC Morphology Not Reportable Hypersegmented Neuts Not Reportable Hyposegmented Neuts Not Reportable Hypogranular Neuts Not Reportable Smudge Cells Not Reportable Toxic Granulation Not Reportable Toxic Vacuolation Not Reportable Dohle Bodies Not Reportable Pelger-Huet Anomaly Not Reportable Mark Rods Not Reportable Platelet Estimate Consistent w auto Clumped Platelets Not Reportable Plt Clumps, EDTA Not Reportable Large Platelets Not Reportable Giant Platelets Not Reportable Platelet Satelliting Not Reportable Plt Morphology Comment Not Reportable RBC Morphology Not Reportable Dimorphic RBCs Not Reportable Polychromasia Not Reportable Hypochromasia 1+ Poikilocytosis Not Reportable Anisocytosis 1+ Microcytosis 1+ Macrocytosis Not Reportable Spherocytes Not Reportable Pappenheimer Bodies Not Reportable Sickle Cells Not Reportable Target Cells Not Reportable Tear Drop Cells Not Reportable Ovalocytes Not Reportable Helmet Cells Not Reportable Cheema-[place] Bodies Not Reportable [place] Rings Not Reportable [place] Cells Not Reportable Bite Cells Not Reportable Crenated Cell Not Reportable Elliptocytes Not Reportable Acanthocytes (Spur) Not Reportable Rouleaux Not Reportable Hemoglobin C Crystals Not Reportable Schistocytes Not Reportable Malaria parasites Not Reportable Sunny Bodies Not Reportable Hem Pathologist Commnt No PT 13.7 INR 1.00 APTT 30.5 Sodium Potassium Chloride Carbon Dioxide Anion Gap BUN Creatinine Estimated GFR BUN/Creatinine Ratio Glucose Calcium Total Bilirubin AST ALT Alkaline Phosphatase Total Protein Albumin Albumin/Globulin Ratio Lipase Blood Type O POSITIVE Antibody Screen Negative Crossmatch See Detail 06/04/18 06/05/18 06/05/18 21:21 00:24 07:09 WBC RBC Hgb 6.7 L 9.5 L Hct 23.3 L 30.9 L D MCV MCH MCHC RDW Plt Count Add Manual Diff Total Counted Seg Neuts % (Manual) Band Neutrophils % Lymphocytes % (Manual) Reactive Lymphs % (Man) Monocytes % (Manual) Eosinophils % (Manual) Basophils % (Manual) Metamyelocytes % Myelocytes % Promyelocytes % Blast Cells % Nucleated RBC % Seg Neutrophils # Man Band Neutrophils # Lymphocytes # (Manual) Abs React Lymphs (Man) Monocytes # (Manual) Eosinophils # (Manual) Basophils # (Manual) Metamyelocytes # Myelocytes # Promyelocytes # Blast Cells # WBC Morphology Hypersegmented Neuts Hyposegmented Neuts Hypogranular Neuts Smudge Cells Toxic Granulation Toxic Vacuolation Dohle Bodies Pelger-Huet Anomaly Mark Rods Platelet Estimate Clumped Platelets Plt Clumps, EDTA Large Platelets Giant Platelets Platelet Satelliting Plt Morphology Comment RBC Morphology Dimorphic RBCs Polychromasia Hypochromasia Poikilocytosis Anisocytosis Microcytosis Macrocytosis Spherocytes Pappenheimer Bodies Sickle Cells Target Cells Tear Drop Cells Ovalocytes Helmet Cells Cheema-[place] Bodies [place] Rings Osval[place] Cells Bite Cells Crenated Cell Elliptocytes Acanthocytes (Spur) Rouleaux Hemoglobin C Crystals Schistocytes Malaria parasites Sunny Bodies Hem Pathologist Commnt PT INR APTT Sodium 140 Potassium 3.5 L Chloride 105.4 Carbon Dioxide 23 Anion Gap 15 BUN 7 L Creatinine 0.8 Estimated GFR > 60 BUN/Creatinine Ratio 9 Glucose 77 Calcium 8.6 Total Bilirubin 0.30 AST 15 ALT 8 Alkaline Phosphatase 85 Total Protein 7.0 Albumin 3.2 L Albumin/Globulin Ratio 0.8 Lipase 42 Blood Type Antibody Screen Crossmatch Assessment and Plan - Patient Problems (1) Severe anemia Current Visit: Yes Status: Acute Plan to address problem: The patient has been transfused overnight and has had an appropriate rise in his hemoglobin. He is not actively bleeding. Most of his anemia is likely from chronic disease and chronic bleeding related to his ulcerative colitis. (2) Ulcerative colitis Current Visit: Yes Status: Acute Qualifiers: Ulcerative colitis location: unspecified ulcerative colitis location Digestive disease complication type: unspecified complication Qualified Code(s ): K51.919 - Ulcerative colitis, unspecified with unspecified complications Plan to address problem: History of pancolitis. Untreated. Medical noncompliance with any follow-up. The patient is stable and can be switched to oral prednisone and diet advanced. He may go home today from the GI standpoint. He was advised to have medical follow-up given that there is some increased risk of colon cancer with a long history of pancolitis. He was advised that this would avail him of any assistance we could provide with obtaining regular medications to avoid his multiple hospitalizations and transfusion requirements. He is up-to-date with his colonoscopy as should not need a follow-up study symptoms improve rapidly as they are doing. Thank you very kindly for asking us to see Mr. Paige in consultation.
[2018-06-05] MEDS ORDERED: PROTONIX IV SCH (10:00)
[2018-06-05] MEDS: DELTASONE PO SCH (10:51)
[2018-06-05 11:52] LABS: Hematocrit 30.2 % (35.5-45.6); Hemoglobin 9.2 gm/dl (11.8-15.2)
--- NOTE | 2018-06-05 12:20 | Progress Note ---
Hospitalist Physical - Physical exam Narrative exam: GEN:Not in acute distress, HEENT: Normocephalic, atraumatic, Neck: supple, No JVD Lungs:Clear to auscultation bilaterally, no crackles, no wheeze Heart:S1 and S2 reg, no murmurs, rubs or gallop Abd:soft, tender, non-distended, Normal bowel sounds Ext: Edema both lower ext, no clubbing or cyanosis Neuro:AAO x 3, No focal neurological signs - Constitutional Vitals: Temp Pulse Resp BP Pulse Ox 98.4 F 64 12 107/65 100 06/05/18 08:00 06/05/18 11:00 06/05/18 11:00 06/05/18 11:00 06/05/18 11:00 Results - Labs CBC & Chem 7: 06/05/18 11:39 06/04/18 21:21 Labs: Laboratory Last Values WBC 8.0 K/mm3 (4.5-11.0) 06/04/18 21:21 RBC 4.00 M/mm3 (3.65-5.03) 06/04/18 21:21 Hgb 9.2 gm/dl (11.8-15.2) L 06/05/18 11:39 Hct 30.2 % (35.5-45.6) L 06/05/18 11:39 MCV 67 fl (84-94) L 06/04/18 21:21 MCH 19 pg (28-32) L 06/04/18 21:21 MCHC 29 % (32-34) L 06/04/18 21:21 RDW 19.4 % (13.2-15.2) H 06/04/18 21:21 Plt Count 383 K/mm3 (140-440) 06/04/18 21:21 Add Manual Diff Complete 06/04/18 21:21 Total Counted 100 06/04/18 21:21 Seg Neuts % (Manual) 53.0 % (40.0-70.0) 06/04/18 21:21 Band Neutrophils % 2.0 % 06/04/18 21:21 Lymphocytes % (Manual) 33.0 % (13.4-35.0) 06/04/18 21:21 Reactive Lymphs % (Man) 0 % 06/04/18 21:21 Monocytes % (Manual) 4.0 % (0.0-7.3) 06/04/18 21:21 Eosinophils % (Manual) 7.0 % (0.0-4.3) H 06/04/18 21:21 Basophils % (Manual) 1.0 % (0.0-1.8) 06/04/18 21:21 Metamyelocytes % 0 % 06/04/18 21:21 Myelocytes % 0 % 06/04/18 21:21 Promyelocytes % 0 % 06/04/18 21:21 Blast Cells % 0 % 06/04/18 21:21 Nucleated RBC % Not Reportable 06/04/18 21:21 Seg Neutrophils # Man 4.2 K/mm3 (1.8-7.7) 06/04/18 21:21 Band Neutrophils # 0.2 K/mm3 06/04/18 21:21 Lymphocytes # (Manual) 2.6 K/mm3 (1.2-5.4) 06/04/18 21:21 Abs React Lymphs (Man) 0.0 K/mm3 06/04/18 21:21 Monocytes # (Manual) 0.3 K/mm3 (0.0-0.8) 06/04/18 21:21 Eosinophils # (Manual) 0.6 K/mm3 (0.0-0.4) H 06/04/18 21:21 Basophils # (Manual) 0.1 K/mm3 (0.0-0.1) 06/04/18 21:21 Metamyelocytes # 0.0 K/mm3 06/04/18 21:21 Myelocytes # 0.0 K/mm3 06/04/18 21:21 Promyelocytes # 0.0 K/mm3 06/04/18 21:21 Blast Cells # 0.0 K/mm3 06/04/18 21:21 WBC Morphology Not Reportable 06/04/18 21:21 Hypersegmented Neuts Not Reportable 06/04/18 21:21 Hyposegmented Neuts Not Reportable 06/04/18 21:21 Hypogranular Neuts Not Reportable 06/04/18 21:21 Smudge Cells Not Reportable 06/04/18 21:21 Toxic Granulation Not Reportable 06/04/18 21:21 Toxic Vacuolation Not Reportable 06/04/18 21:21 Dohle Bodies Not Reportable 06/04/18 21:21 Pelger-Huet Anomaly Not Reportable 06/04/18 21:21 Mark Rods Not Reportable 06/04/18 21:21 Platelet Estimate Consistent w auto 06/04/18 21:21 Clumped Platelets Not Reportable 06/04/18 21:21 Plt Clumps, EDTA Not Reportable 06/04/18 21:21 Large Platelets Not Reportable 06/04/18 21:21 Giant Platelets Not Reportable 06/04/18 21:21 Platelet Satelliting Not Reportable 06/04/18 21:21 Plt Morphology Comment Not Reportable 06/04/18 21:21 RBC Morphology Not Reportable 06/04/18 21:21 Dimorphic RBCs Not Reportable 06/04/18 21:21 Polychromasia Not Reportable 06/04/18 21:21 Hypochromasia 1+ 06/04/18 21:21 Poikilocytosis Not Reportable 06/04/18 21:21 Anisocytosis 1+ 06/04/18 21:21 Microcytosis 1+ 06/04/18 21:21 Macrocytosis Not Reportable 06/04/18 21:21 Spherocytes Not Reportable 06/04/18 21:21 Pappenheimer Bodies Not Reportable 06/04/18 21:21 Sickle Cells Not Reportable 06/04/18 21:21 Target Cells Not Reportable 06/04/18 21:21 Tear Drop Cells Not Reportable 06/04/18 21:21 Ovalocytes Not Reportable 06/04/18 21:21 Helmet Cells Not Reportable 06/04/18 21:21 Cheema-[place] Bodies Not Reportable 06/04/18 21:21 Angelica Rings Not Reportable 06/04/18 21:21 [place] Cells Not Reportable 06/04/18 21:21 Bite Cells Not Reportable 06/04/18 21:21 Crenated Cell Not Reportable 06/04/18 21:21 Elliptocytes Not Reportable 06/04/18 21:21 Acanthocytes (Spur) Not Reportable 06/04/18 21:21 Rouleaux Not Reportable 06/04/18 21:21 Hemoglobin C Crystals Not Reportable 06/04/18 21:21 Schistocytes Not Reportable 06/04/18 21:21 Malaria parasites Not Reportable 06/04/18 21:21 Sunny Bodies Not Reportable 06/04/18 21:21 Hem Pathologist Commnt No 06/04/18 21:21 PT 13.7 Sec. (12.2-14.9) 06/04/18 21:21 INR 1.00 (0.87-1.13) 06/04/18 21:21 APTT 30.5 Sec. (24.2-36.6) 06/04/18 21:21 Sodium 140 mmol/L (137-145) 06/04/18 21:21 Potassium 3.5 mmol/L (3.6-5.0) L 06/04/18 21:21 Chloride 105.4 mmol/L (98-107) 06/04/18 21:21 Carbon Dioxide 23 mmol/L (22-30) 06/04/18 21:21 Anion Gap 15 mmol/L 06/04/18 21:21 BUN 7 mg/dL (9-20) L 06/04/18 21:21 Creatinine 0.8 mg/dL (0.8-1.5) 06/04/18 21:21 Estimated GFR > 60 ml/min 06/04/18 21:21 BUN/Creatinine Ratio 9 % 06/04/18 21:21 Glucose 77 mg/dL (75-100) 06/04/18 21:21 Calcium 8.6 mg/dL (8.4-10.2) 06/04/18 21:21 Total Bilirubin 0.30 mg/dL (0.1-1.2) 06/04/18 21:21 AST 15 units/L (5-40) 06/04/18 21:21 ALT 8 units/L (7-56) 06/04/18 21:21 Alkaline Phosphatase 85 units/L (35-129) 06/04/18 21:21 Total Protein 7.0 g/dL (6.3-8.2) 06/04/18 21:21 Albumin 3.2 g/dL (3.9-5) L 06/04/18 21:21 Albumin/Globulin Ratio 0.8 % 06/04/18 21:21 Lipase 42 units/L (13-60) 06/04/18 21:21 Blood Type O POSITIVE 06/04/18 21:19 Antibody Screen Negative 06/04/18 21:19 Crossmatch See Detail 06/04/18 21:19
--- NOTE | 2018-06-05 13:15 | Event Note ---
Date: 06/05/18 Down-graded to floor. No active pulm issues. Canceling critical care consult. Call with questions.
[2018-06-05] MEDS ORDERED: MORPHINE IV PRN (16:34)
--- NOTE | 2018-06-05 16:45 | Event Note ---
Date: 06/05/18 Patient is 38-year-old with ulcerative colitis presents with abdominal pain and bloody stools. He has ulcerative colitis exacerbation, admitted to medical surgical floor. GI Physician to evaluate.
[2018-06-05 16:57] LABS: Hematocrit 30.6 % (35.5-45.6); Hemoglobin 9.5 gm/dl (11.8-15.2)
[2018-06-05] MEDS: NACL 0.9% 1000 ML 1,000 ML IV SCH (17:39)
[2018-06-05] MEDS: PROTONIX IV SCH (18:32)
[2018-06-06] MEDS: NACL 0.9% 1000 ML 1,000 ML IV SCH (04:30)
[2018-06-06 05:01] LABS: Hematocrit 28.5 % (35.5-45.6); Hemoglobin 8.9 gm/dl (11.8-15.2); Mean Corpuscular HGB Conc 31 % (32-34); Platelet Count 337 K/mm3 (140-440); Red Blood Count 4.19 M/mm3 (3.65-5.03)
[2018-06-06 05:20] LABS: Mean Corpuscular Hemoglobin 21 pg (28-32); Mean Corpuscular Volume 68 fl (84-94); Red Cell Distribution Width 21.1 % (13.2-15.2)
[2018-06-06 05:28] LABS: BUN/Creatinine Ratio 7; Blood Urea Nitrogen 5 mg/dL (9-20); Calcium 7.8 mg/dL (8.4-10.2); Hemolysis Index 3
[2018-06-06] MEDS: DELTASONE PO SCH (10:17)
[2018-06-06] MEDS: PROTONIX IV SCH (10:17)
[2018-06-06 13:07] VITALS: BP 96/59
[2018-06-06 13:31] LABS: Hematocrit 27.3 % (35.5-45.6)
--- NOTE | 2018-06-06 15:41 | Discharge Summary ---
Providers - Providers Date of Admission: 06/04/18 23:39 Date of discharge: 06/06/18 Attending physician: JUJU OROZCO 06/04/18 23:09 Consult to Physician [CONS] Urgent Comment: Dr. Guan spoke with Dr. Rasmussen @ [phone] Consulting Provider: DARYL RASMUSSEN Physician Instructions: Reason For Exam: Rectal Bleeding from Ulcerative Colitis 06/05/18 02:10 Consult to Physician [CONS] Routine Comment: Dr. Valladares notified @ [phone] Consulting Provider: NERI HERZOG Physician Instructions: Reason For Exam: ACTIVE RECTAL BLEEDING NEEDING ICU ADMISSION Primary care physician: CEREAL MAKER Hospitalization Reason for admission: 06/06/18 Condition: Fair Pertinent studies: CT abdomen/pelvis: Circumferential mucosal thickening in the rectum as described. Proctitis is suspected. Abrupt transition point from the sigmoid colon and rectum as described. Endoscopic evaluation is recommended to definitely exclude an occult lesion to account for this. 8 millimeter benign cortical cyst anteriorly right kidney. No evidence of hydronephrosis. Hospital course: The patient is a 38-year-old man who reports having ulcerative colitis for approximately 10 years admitted with severe anemia and a flare of his colitis manifested by abdominal pain and bleeding. He does have intermittent rectal bleeding and diarrhea on a regular basis. He was found to have a hemoglobin of 6.7 on emergency room evaluation and was admitted for observation and transfusion. he was transfused 2 units of PRBC and his H/h remained stable. He has never had regular care of his ulcerative colitis which he attributes to not having health insurance. He apparently had a colonoscopy in 2017 at [facility] revealing diffuse pancolitis. He has been on mesalamine intermittently over the years and steroids from hospitalizations. He was started back on steroid and advised to f/u Outpt with GI for further management. Discharge diagnosis: (1) Severe anemia s/p transfusion, H/H stable No further intervention per GI (2) Ulcerative colitis Noncompliant due to lack of insurance Continue steroid for now, f/u outpt with GI for further management Disposition: DC-01 TO HOME OR SELFCARE Time spent for discharge: 34 minutes Core Measure Documentation - Palliative Care Palliative Care/ Comfort Measures: Not Applicable - Core Measures Any of the following diagnoses?: none Exam - Constitutional Vitals: Temp Pulse Resp BP Pulse Ox 98.0 F 74 19 96/59 100 06/06/18 11:27 06/06/18 11:27 06/06/18 11:27 06/06/18 11:27 06/06/18 11:27 General appearance: Present: no acute distress, well-nourished - EENT Eyes: Present: PERRL ENT: hearing intact, clear oral mucosa - Neck Neck: Present: supple, normal ROM - Respiratory Respiratory effort: normal Respiratory: bilateral: CTA - Cardiovascular Heart Sounds: Present: S1 & S2. Absent: rub, click - Extremities Extremities: pulses symmetrical, No edema Peripheral Pulses: within normal limits - Abdominal General gastrointestinal: Present: soft, non-tender, non-distended, normal bowel sounds - Integumentary Integumentary: Present: clear, warm, dry - Musculoskeletal Musculoskeletal: gait normal, strength equal bilaterally - Psychiatric Psychiatric: appropriate mood/affect, intact judgment & insight - Neurologic Neurologic: CNII-XII intact, moves all extremities Plan Activity: advance as tolerated Weight Bearing Status: Weight Bear as Tolerated Diet: low fat Additional Instructions: f/u with GI outpt Follow up with: PRIMARY CARE, [Primary Care Provider] - 7 Days Forms: Accompanied Note Prescriptions: HYDROcodone/APAP 5-325 [[place] 5-325 mg TAB] 1 each PO Q6HR PRN #10 tablet PRN Reason: Pain predniSONE [Deltasone] 20 mg PO QDAY #10 tablet
[2018-06-07] MEDS ORDERED: PROTONIX PO SCH (10:00)
== END 2018-06-06 19:30 | disposition home or self-care (01) | DRG 387 ==
LOC: ED 20:36 → CC1 23:39 → 3A 06-05 12:26
PROVIDERS: ADMIT Internal Medicine; ATTEND Internal Medicine
PROC: 30233N1 Transfusion of Nonautologous Red Blood Cells into Peripheral Vein, Percutaneous Approach (ICD-10-PCS; principal; 2018-06-05)
DX: K51.211 Ulcerative (chronic) proctitis with rectal bleeding (principal); D64.9 Anemia, unspecified; Z91.19 Patient's noncompliance with other medical treatment and regimen; Z79.899 Other long term (current) drug therapy
CPT/HCPCS: 36415; 36430; 74177; 80048; 80053; 83690; 85007; 85014; 85018; 85025; 85027; 85610; 85730; 86850; 86900; 86901; 86920; 93005; 93010; 96361; 96374; C9113; J2930; J7030; J7512; P9016; Q9967

== ENCOUNTER 2018-07-18 21:13 | Emergency (ER) | payer SELFPAY ==
[2018-07-18] MEDS ORDERED: NACL 0.9% 1000 ML 1,000 ML IV ONE (21:54)
[2018-07-18 22:50] LABS: Basophils # (Auto) 0.1 K/mm3 (0.0-0.1); Basophils % (Auto) 0.8 % (0.0-1.8); Eosinophils # (Auto) 0.5 K/mm3 (0.0-0.4); Eosinophils % (Auto) 6.3 % (0.0-4.3); Lymphocytes % (Auto) 27.2 % (13.4-35.0); Mean Corpuscular HGB Conc 30 % (32-34); Mean Corpuscular Volume 72 fl (84-94); Monocytes # (Auto) 0.9 K/mm3 (0.0-0.8); Monocytes % (Auto) 13.1 % (0.0-7.3); Platelet Count 319 K/mm3 (140-440); Red Blood Count 4.35 M/mm3 (3.65-5.03)
[2018-07-18 22:55] LABS: Hematocrit 31.2 % (35.5-45.6); Hemoglobin 9.3 gm/dl (11.8-15.2)
[2018-07-18 22:56] LABS: Mean Corpuscular Hemoglobin 21 pg (28-32); Red Cell Distribution Width 24.6 % (13.2-15.2)
[2018-07-18 23:14] LABS: Alanine Aminotransferase 12 units/L (7-56); Albumin 3.2 g/dL (3.9-5); BUN/Creatinine Ratio 9; Blood Urea Nitrogen 6 mg/dL (9-20); Calcium 8.1 mg/dL (8.4-10.2); Hemolysis Index 6; Lipase 26 units/L (13-60)
--- NOTE | 2018-07-18 23:30 | Emergency Department Report ---
ED Abdominal Pain HPI - General Chief Complaint: Abdominal Pain Stated Complaint: STOMACH/BACK PAIN Time Seen by Provider: 07/18/18 23:17 Source: patient, EMS Mode of arrival: Ambulatory Limitations: No Limitations - History of Present Illness Initial Comments: 38-year-old -[place] male comes in complaining of lower back pain right hip pain since that is his arthritis is flaring up. He also is coming in with abdominal pain and reports that his colitis is starting to flare up started this morning. Patient reports that his pain is 8 out of 10. She has not taken anything for pain. Patient came in by EMS. Patient has not followed up by GI doctor or any other doctor as advice this patient's last visit here in June. Patient has a past medical history of colitis with blood transfusion March 2018 as well as arthritis of the back and right hip. Patient reports he takes no medication and has no known drug allergies. MD Complaint: abdominal pain -: days(s) (1) Location: diffuse Radiation: none Migration to: no migration Severity scale (0 -10): 8 Consistency: constant Improves With: nothing Worsens With: nothing - Related Data Previous Rx's Medication Instructions Recorded Last Taken Type metroNIDAZOLE [Flagyl] 500 mg PO Q8HR #21 tablet 03/15/18 Unknown Rx Amoxicillin/Potassium Clav 1 each PO BID #14 tablet 05/09/18 Unknown Rx [Augmentin 875-125 Tablet] Ondansetron [Zofran Odt] 4 mg PO Q4-6H PRN #12 tab.rapdis 05/09/18 Unknown Rx Prednisone [predniSONE 10 mg 10 mg PO .TAPER #1 tab.ds.pk 05/09/18 Unknown Rx (6-Day Pack, 21 Tabs)] Promethazine [Phenergan TAB] 25 mg PO Q6HR PRN #12 tab 05/09/18 Unknown Rx HYDROcodone/APAP 5-325 [[place] 1 each PO Q6HR PRN #10 tablet 06/06/18 Unknown Rx 5-325 mg TAB] predniSONE [Deltasone] 20 mg PO QDAY #10 tablet 06/06/18 Unknown Rx Acetaminophen [Tylenol Extra 500 mg PO QID #20 tablet 07/19/18 Unknown Rx Strength] Prednisone [predniSONE 10 mg 10 mg PO .TAPER #1 tab.ds.pk 07/19/18 Unknown Rx (6-Day Pack, 21 Tabs)] Allergies Allergy/AdvReac Type Severity Reaction Status Date / Time No Known Allergies Allergy Verified 04/27/17 00:02 ED Review of Systems ROS: Stated complaint: STOMACH/BACK PAIN Other details as noted in HPI Comment: All other systems reviewed and negative Gastrointestinal: abdominal pain, hematochezia Musculoskeletal: back pain (lower back), arthralgia (right hip ) ED Past Medical Hx - Past Medical History Previous Medical History?: Yes Hx Hypertension: No Hx Heart Attack/AMI: No Hx Congestive Heart Failure: No Hx Diabetes: No Hx Deep Vein Thrombosis: No Hx Arthritis: Yes (Back and right hip) Hx Headaches / Migraines: No Hx Seizures: No Hx Asthma: No Hx COPD: No Hx Dementia: No Additional medical history: colitis with blood transfusions 03/2018 - Surgical History Past Surgical History?: No Hx Coronary Stent: No Hx Pacemaker: No Hx Internal Defibrillator: No - Social History Smoking Status: Never Smoker Substance Use Type: None - Medications Home Medications: Home Medications Medication Instructions Recorded Confirmed Last Taken Type metroNIDAZOLE [Flagyl] 500 mg PO Q8HR #21 tablet 03/15/18 Unknown Rx Amoxicillin/Potassium Clav 1 each PO BID #14 tablet 05/09/18 Unknown Rx [Augmentin 875-125 Tablet] Ondansetron [Zofran Odt] 4 mg PO Q4-6H PRN #12 tab.rapdis 05/09/18 Unknown Rx Prednisone [predniSONE 10 mg 10 mg PO .TAPER #1 tab.ds.pk 05/09/18 Unknown Rx (6-Day Pack, 21 Tabs)] Promethazine [Phenergan TAB] 25 mg PO Q6HR PRN #12 tab 05/09/18 Unknown Rx HYDROcodone/APAP 5-325 [[place] 1 each PO Q6HR PRN #10 tablet 06/06/18 Unknown Rx 5-325 mg TAB] predniSONE [Deltasone] 20 mg PO QDAY #10 tablet 06/06/18 Unknown Rx Acetaminophen [Tylenol Extra 500 mg PO QID #20 tablet 07/19/18 Unknown Rx Strength] Prednisone [predniSONE 10 mg 10 mg PO .TAPER #1 tab.ds.pk 07/19/18 Unknown Rx (6-Day Pack, 21 Tabs)] ED Physical Exam - General Limitations: No Limitations General appearance: alert, in no apparent distress - Head Head exam: Present: atraumatic, normocephalic - Eye Eye exam: Present: EOMI - ENT ENT exam: Present: mucous membranes moist - Neck Neck exam: Present: normal inspection - Respiratory Respiratory exam: Present: normal lung sounds bilaterally. Absent: respiratory distress - Cardiovascular Cardiovascular Exam: Present: tachycardia - GI/Abdominal GI/Abdominal exam: Present: tenderness, guarding, diminished bowel sounds - Back Exam Back exam: Present: tenderness - Neurological Exam Neurological exam: Present: alert, oriented X3 - Psychiatric Psychiatric exam: Present: normal affect, normal mood ED Course Vital Signs 07/18/18 21:50 Temperature 98.5 F Pulse Rate 96 H Respiratory 16 Rate Blood Pressure 103/71 O2 Sat by Pulse 99 Oximetry ED Medical Decision Making - Lab Data Result diagrams: 07/18/18 22:04 07/18/18 22:04 - Radiology Data Radiology results: report reviewed IMPRESSION: [place] of the colon appear minimally diffusely thickened suggesting a nonspecific colitis. No strictures are seen. No evidence of bowel obstruction. There are few mildly prominent lymph nodes in the mesentery medial to the cecum. These do not appear to be pathologically enlarged. There is mild nonspecific diffuse prostate enlargement . Transcribed By: DFN Dictated By: LILIA OJEDA MD Electronically Authenticated By: LILIA OJEDA MD Signed Date/Time: 07/19/18 003 - Medical Decision Making Patient has been evaluated by this provider in fast track. CBC CMP and lipase CT scan has been done Patient has a history of noncompliance also to colitis and anemia as well as arthritis. Patient be discharged home on Tylenol prednisone pack and a referral to gastroenterology. Discussed case with Dr. Aston Rodriguez Critical care attestation.: If time is entered above; I have spent that time in minutes in the direct care of this critically ill patient, excluding procedure time. ED Disposition Clinical Impression: Ulcerative colitis Qualifiers: Ulcerative colitis location: ulcerative pancolitis Digestive disease complication type: unspecified complication Qualified Code(s): K51.019 - Ulcerative (chronic) pancolitis with unspecified complications Anemia Qualifiers: Anemia type: unspecified type Qualified Code(s): D64.9 - Anemia, unspecified Disposition: DC-01 TO HOME OR SELFCARE Is pt being admited?: No Does the pt Need Aspirin: No Condition: Stable Instructions: Ulcerative Colitis (ED), Anemia (ED) Additional Instructions: Please take pain medication and prednisone as prescribed. It is very important for you to follow up with gastroenterology. I have listed there information below. Prescriptions: Acetaminophen [Tylenol Extra Strength] 500 mg PO QID #20 tablet Prednisone [predniSONE 10 mg (6-Day Pack, 21 Tabs)] 10 mg PO .TAPER #1 tab.ds.pk Referrals: PRIMARY CARE, [Primary Care Provider] - 3-5 Days [facility] [Provider Group] - 3-5 Days Forms: Work/School Release Form(ED)
--- NOTE | 2018-07-19 00:38 | Cat Scan Report ---
FINAL REPORT PROCEDURE: CT ABDOMEN PELVIS WO CON TECHNIQUE: Computerized axial tomography of the abdomen and pelvis was performed without intravenous contrast. This study is performed without intravascular contrast material and its sensitivity for abdominal and pelvic pathology, including neoplasms, inflammation, abscess, free fluid, thrombosis, arterial dissection and infarction, is reduced compared with a contrast enhanced study. HISTORY: abdominal pain and tenderness COMPARISON: No prior studies are available for comparison. FINDINGS: Lower Lung dye: No focal abnormality seen. Upper Abdomen: The unenhanced images of the liver show no abnormalities. Gallbladder, the adrenal glands, the pancreas are unremarkable. The spleen is not enlarged. Kidneys, Ureters and Urinary bladder: No abnormalities are seen. Retroperitoneum: Abdominal aorta appears normal. Nonspecific subcentimeter lymph nodes are seen in the retroperitoneum. No pathologically enlarged lymph nodes are identified. Bowel: The transverse colon is mildly gas distended. The cash of the colon appear minimally diffusely thickened. This is greatest in the region of the cecum. No evidence of bowel obstruction. There is no ascites or free intraperitoneal gas. The appendix is not visualized. Mildly prominent lymph nodes seen in the mesentery medial to the cecum. Lymph nodes measuring up to 7 millimeters in short axis visualized. No evidence of bowel obstruction or ascites. There is no free intraperitoneal gas. Reproductive organs: There is nonspecific mild diffuse prostate enlargement. Other: No acute bone abnormalities are seen. IMPRESSION: Cash of the colon appear minimally diffusely thickened suggesting a nonspecific colitis. No strictures are seen. No evidence of bowel obstruction. There are few mildly prominent lymph nodes in the mesentery medial to the cecum. These do not appear to be pathologically enlarged. There is mild nonspecific diffuse prostate enlargement .
[2018-07-19] MEDS ORDERED: NORCO 5/325 PO ONE (01:04)
[2018-07-19 03:16] LABS: Bacteria,Urine 1+ /HPF (Negative); Bilirubin,Urine NEG (Negative); Blood,Urine NEG (Negative); Mucus,Urine 3+ /HPF; Urobilinogen,Urine < 2.0 mg/dL (<2.0)
[2018-07-19 03:18] LABS: Color,Urine Yellow (Yellow)
[2018-07-19 04:16] VITALS: BP 94/58
== END 2018-07-19 04:17 | disposition home or self-care (01) ==
LOC: ED 21:13
DX: K51.019 Ulcerative (chronic) pancolitis with unspecified complications (principal); M54.5 Low back pain; M25.551 Pain in right hip; D64.9 Anemia, unspecified; M13.851 Other specified arthritis, right hip; M13.88 Other specified arthritis, other site
CPT/HCPCS: 36415; 74176; 80053; 81001; 83690; 85025

== ENCOUNTER 2018-10-26 08:34 | Emergency (ER) | payer SELFPAY ==
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
== END 2018-10-26 10:00 ==
LOC: ED 08:34
DX: I46.9 Cardiac arrest, cause unspecified (principal)